=== PATIENT | male | born 1960 | race Hispanic/Latino ===

== ENCOUNTER 2023-04-08 15:11 | Emergency (ER) | payer SELFPAY ==
[2023-04-08] VITALS (22 sets, daily range): BP systolic 110–155; BP diastolic 77–93; PULSE 69–94; RESP 16–28; TEMP 36.2; O2SAT 89–96; BMI 28.7
--- NOTE | 2023-04-08 15:26 | PC.NURSE ---
Patient was working out 2 days ago and his ribs started hurting. He then decided to go for a run yesterday and the pain got a lot worse. He is not able to take deep breathes without 10/10 pain only in his right side. He has never had this before.
--- NOTE | 2023-04-08 15:29 | DI.CT.S_ITS ---
PROCEDURE: CT ANGIO CHEST PE PROTOCOL INDICATIONS: Pleuritic chest pain TECHNIQUE: After the administration of intravenous contrast, 2 mm thick sections acquired from the pulmonary apices to the posterior costophrenic angles. 3-dimensional maximum intensity projection (MIP) coronal and sagittal reformats were then acquired through the thorax. For radiation dose reduction, the following was used: automated exposure control, adjustment of mA and/or kV according to patient size. COMPARISON: None. FINDINGS: Image quality: Excellent. Pulmonary arteries: Pulmonary arteries are normal in size. Intraluminal filling defects are noted within segmental and subsegmental branches of left lower lobe pulmonary artery, right upper and lower lobe pulmonary artery branches best seen on series 4, image 70, series 4 image 75, and series 4 image 56, suggestive of extensive bilateral pulmonary emboli. Lungs and pleura: There is a small right pleural effusion and trace left pleural effusion. Hazy ground-glass opacities are seen scattered in right upper lobe, right middle lobe, left upper lobe and bilateral lower lobes extending to bilateral hilar region. Finding is most notably involving posterior aspect of right lower lobe and posterior lateral aspect of left lung base. 4 mm slightly spiculated nodule is seen in anterior right lung base series 5, image 164. 5 mm solid nodule is noted in anterior aspect of right upper lobe series 5 image 94. 6 mm solid nodule is noted in lateral aspect of left upper lobe series 5, image 85 Central and peripheral airways are patent. Mediastinum: Heart size is enlarged, without pericardial effusion. There is slight left for bowing of the interventricular septum concerning for right heart strain. Mildly enlarged mediastinal and hilar lymph nodes are seen measures up to 1.2 cm in size in subcarinal space and 1 cm in size in right hilar region. Thoracic aorta is normal in caliber and enhancement. Esophagus is normal in caliber, with a small hiatal hernia. Bones and chest wall: No suspicious bony lesions. Ribs and thoracic spine appear intact throughout. Thyroid gland is within normal limits. No axillary or supraclavicular adenopathy. Abdomen: Visualized upper abdominal solid organs appear normal in the early arterial phase of enhancement. IMPRESSION: 1. Fairly extensive pulmonary emboli in bilateral segmental and segmental branches of pulmonary arteries as described above. There are signs of early right heart strain. 2. No thoracic aortic aneurysm or gross dissection. Cardiomegaly, no pericardial effusion. 3. Hazy ground-glass opacities and airspace opacities scattered in bilateral lung gandhi suggestive of bilateral patchy pulmonary infiltrates. Trace left pleural effusion and small right pleural effusion with bibasilar atelectasis/infiltrates. No pneumothorax. 4. Mildly enlarged mediastinal and hilar lymph nodes concerning for reactive inflammatory nodes. 5. Incidentally noted of small solid pulmonary nodules as described above. Follow-up CT chest in 6 months is recommended for evaluation of stability or resolution. Dictated by: John Montana M.D. on 04/08/2023 at 16:36 Approved by: John Montana M.D. on 04/08/2023 at 16:46
[2023-04-08] MEDS: CYCLOBENZAPRINE 10 MG TABLET PO (15:45)
[2023-04-08] MEDS: KETOROLAC 30 MG/ML VIAL 15 MG IV (15:45)
[2023-04-08 15:47] LABS: Add Manual Diff / Slide Review NO; Basophils Absolute Auto 0 /uL (0-100); Basophils Percent Auto 0.2 % (0-2); Eosinophils Absolute Auto 200 /uL (0-450); Eosinophils Percent Auto 1.3 % (2-4); Hemoglobin 13.8 g/dL (13.5-17.5); Lymphocytes Absolute Auto 800 /uL (1100-4500); Lymphocytes Percent Auto 6.5 % (25-40); Mean Corpuscular HGB Conc 33.7 % (30-36); Mean Corpuscular Hemoglobin 30.6 PG (26-34); Monocytes Absolute Auto 800 /uL (0-900); Monocytes Percent Auto 7.1 % (3-14); Neutrophils Absolute Auto 9800 /uL (1500-7000); Neutrophils Percent Auto 84.9 % (50-75); Platelet Count 275 X10^3/uL (150-400); Red Cell Distribution Width 13.5 % (11.6-14.8); White Blood Cell Count 11.6 X10^3/uL (4.5-11.0)
[2023-04-08 15:50] LABS: INR 1.2 (0.9-1.3); Prothrombin Time 13.8 SECONDS (10.1-12.7)
[2023-04-08 15:53] LABS: PTT Partial Thromboplastin Tim 31 SECONDS (26-36)
[2023-04-08 15:59] LABS: Alanine Aminotransferase 35 IU/L (<50); Albumin 4.4 g/dL (3.5-5.0); Albumin Globulin Ratio 1.2 (1.0-2.8); Alkaline Phosphatase 85 U/L (38-126); Aspartate Aminotransferase 27 IU/L (17-59); BUN Creatinine Ratio 20.8 (6-22); Bilirubin Total 0.8 mg/dL (0.2-1.3); Blood Urea Nitrogen 22 mg/dL (9-20); Calcium 10.5 mg/dL (8.4-10.2); Carbon Dioxide 26 mmol/L (22-32); Chloride 103 mmol/L (98-107); Estimated Glomerular Filt Rate > 60 mL/min (>60); Globulin 3.8 g/dL (1.7-4.1); Glucose 130 mg/dL (80-110); HEMOLYSIS < 15 (0-50); Lipase 144 U/L (23-300); Potassium 4.8 mmol/L (3.4-5.1); Sodium 139 mmol/L (137-145); Total Protein 8.2 g/dL (6.3-8.2)
--- NOTE | 2023-04-08 16:13 | ED_ITS ---
HPI - Back Pain/Injury <Modesta Aquino PA-C - Last Filed: 04/08/23 18:41> General Chief Complaint: Back Pain/Injury Stated Complaint: rt back pain, very painful when inhale Time Seen by Provider: 04/08/23 15:30 Source: patient History of Present Illness HPI Narrative: 62-year-old male with no reported past medical history presents to the ED with 2 days of pleuritic right lower rib pain. Patient states that it has been excruciatingly painful to breathe over the last 2 days. 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 Patient also went running yesterday hoping to make his symptoms better. In the ED, patient looks uncomfortable, points to his posterior right lower ribs as the spot that hurts. Patient denies fever, chills, shortness of breath, nausea, vomiting, lightheadedness, dizziness, syncope. Patient states he had a bad cold in January of this year, took a 5 [address] long plane ride to and from [facility]. No prior history of blood clots. Patient is not a smoker. Patient denies drug use. Occasional alcohol use. Related Data Allergies Allergy/AdvReac Type Severity Reaction Status Date / Time No Known Drug Allergies Allergy Verified 04/08/23 15:19 Review of Systems <Modesta Aquino PA-C - Last Filed: 04/08/23 18:41> Review of Systems ROS Unobtainable: All systems reviewed & are unremarkable except as noted in HPI and below Constitutional Constitutional: Denies chills, Denies fatigue, Denies fever(s), Denies frequent falls, Denies lethargy and Denies weakness Eyes Eyes: Denies change in vision, Denies eye discharge, Denies irritation and Denies loss of vision ENT Ears, Nose, Mouth, and Throat: Denies change in voice, Denies dizziness, Denies neck pain, Denies sore throat and Denies throat swelling Cardiovascular Cardiovascular: Denies chest pain, Denies irregular heart rhythm, Denies lightheadedness, Denies palpitations, Denies dyspnea, Denies dyspnea on exertion and Denies orthopnea Respiratory Respiratory: Denies cough, Reports pain on inspiration, Denies dyspnea, Denies dyspnea on exertion and Denies wheezing Gastrointestinal Gastrointestinal: Denies abdominal pain, Denies change in bowel habits, Denies diarrhea, Denies nausea and Denies vomiting Genitourinary Genitourinary: Denies hematuria, Denies flank pain, Denies urinary incontinence and Denies urinary urgency Musculoskeletal Musculoskeletal: Denies back pain, Denies muscle weakness, Denies neck pain, Denies numbness and Denies tingling Integumentary/Breasts Skin/Breast: Denies pruritus, Denies erythema, Denies rash and Denies wounds Neurologic Neurologic: Denies behavioral changes, Denies confusion, Denies dizziness, Denies frequent falls, Denies loss of vision, Denies numbness, Denies tingling and Denies weakness Psychiatric Psychiatric: Denies anxiety, Denies behavioral changes, Denies confusion, Denies depression, Denies homicidal ideation and Denies suicidal ideation Endocrine Endocrine: Denies fatigue, Denies flushing and Denies palpitations Hematologic/Lymphatic Hematologic/Lymphatic: Denies easy bruising Allergic/Immunologic Allergic/Immunologic: Denies urticaria, Denies throat swelling and Denies wheezing Patient History <Modesta Aquino PA-C - Last Filed: 04/08/23 18:41> Social History Smoking Status: Never smoker Smoking Status: Never smoker alcohol intake frequency: 0-2 drinks per day Substance Use Type: does not use Exam <Modesta Aquino PA-C - Last Filed: 04/08/23 18:41> Narrative Exam Narrative: Const General:?cooperative, healthy appearing and comfortable [facility] Head:?normal to inspection Ears:?hearing grossly normal bilaterally Nose:?external nose normal Face and sinus:?normal facial exam and sinuses nontender Mouth:?oral mucosae normal Throat:?posterior oropharynx normal Eyes General:?appearance normal, both eyes and all related structures Neck Neck:?normal visual inspection and no lymphadenopathy noted Resp Effort & Inspection:?normal respiratory effort Auscultation:?clear to auscultation bilaterally Cardio Rate:?regular rate Rhythm:?regular rhythm GI Abdomen is soft, nondistended, nontender to palpation. There is no CVA tenderness. Musculoskeletal No tenderness to palpation of the right lower ribs, no bruising, no deformities. Neuro General:?patient alert, patient awake and patient oriented x3 Initial Vital Signs Initial Vital Signs: Vital Signs Temperature 97.2 F L 04/08/23 15:14 Pulse Rate 94 H 04/08/23 15:14 Respiratory Rate 18 04/08/23 15:14 Blood Pressure 141/93 H 04/08/23 15:14 Pulse Oximetry 95 04/08/23 15:14 Oxygen Delivery Method Room Air 04/08/23 15:14 <Dany Whitmore MD - Last Filed: 04/10/23 03:21> Initial Vital Signs Initial Vital Signs: Vital Signs Temperature 97.2 F L 04/08/23 15:14 Pulse Rate 94 H 04/08/23 15:14 Respiratory Rate 18 04/08/23 15:14 Blood Pressure 141/93 H 04/08/23 15:14 Pulse Oximetry 95 04/08/23 15:14 Oxygen Delivery Method Room Air 04/08/23 15:14 <Puma Kuo MD - Last Filed: 04/09/23 20:18> Initial Vital Signs Initial Vital Signs: Vital Signs Temperature 97.2 F L 04/08/23 15:14 Pulse Rate 94 H 04/08/23 15:14 Respiratory Rate 18 04/08/23 15:14 Blood Pressure 141/93 H 04/08/23 15:14 Pulse Oximetry 95 04/08/23 15:14 Oxygen Delivery Method Room Air 04/08/23 15:14 Course <Modesta Aquino PA-C - Last Filed: 04/08/23 18:41> Orders Ordered: ED Orders 04/09/23 19:49 CBC Auto Diff [Complete Blood Count AUTO DIFF] Stat CMP [Comprehensive Metabolic Panel] Stat 04/09/23 20:58 PTT Partial Thromboplastin Gee Stat Discontinued Medications Albuterol (Albuterol 2.5 Mg/3 Ml Neb (Adult)) 2.5 mg INH NOW ONE Stop: 04/09/23 18:12 Last Admin: 04/09/23 18:15 Dose: 2.5 mg Documented By: AMAN Azithromycin (Azithromycin 250 Mg Tablet) 500 mg PO NOW ONE Stop: 04/08/23 17:59 Last Admin: 04/08/23 18:39 Dose: 500 mg Documented By: JAYANT Cyclobenzaprine HCl (Cyclobenzaprine 10 Mg Tablet) 10 mg PO NOW ONE Stop: 04/08/23 15:29 Last Admin: 04/08/23 15:45 Dose: 10 mg Documented By: BENSON Diazepam (Diazepam 10 Mg/2 Ml Syringe) 5 mg IV NOW ONE Stop: 04/09/23 01:36 Last Admin: 04/09/23 01:39 Dose: 5 mg Documented By: XIN Diazepam (Diazepam 10 Mg/2 Ml Syringe) 5 mg IV NOW ONE Stop: 04/09/23 18:06 Last Admin: 04/09/23 18:09 Dose: 5 mg Documented By: KJ Diazepam (Diazepam 10 Mg/2 Ml Syringe) 5 mg IV NOW ONE Stop: 04/09/23 21:41 Last Admin: 04/09/23 21:59 Dose: 5 mg Documented By: ARLEEN Heparin Sodium (Porcine) (Heparin 5,000 Unit/Ml Vial) 7,300 unit 80 unit/kg (7300 unit) IV NOW ONE Stop: 04/08/23 17:30 Last Admin: 04/08/23 18:40 Dose: 7,300 unit Documented By: JAYANT Heparin Sodium (Porcine) (Heparin 5,000 Unit/Ml Vial) 2,000 unit IV NOW ONE Stop: 04/09/23 01:29 Last Admin: 04/09/23 01:32 Dose: 2,000 unit Documented By: XIN Heparin Sodium (Porcine) (Heparin 5,000 Unit/Ml Vial) 2,000 unit IV NOW ONE Stop: 04/09/23 14:56 Last Admin: 04/09/23 14:58 Dose: 2,000 unit Documented By: KJ Heparin Sodium (Porcine) (Heparin 5,000 Unit/Ml Vial) 2,000 unit IV NOW ONE Stop: 04/09/23 21:42 Last Admin: 04/09/23 21:50 Dose: 2,000 unit Documented By: ARLEEN Hydromorphone HCl (Hydromorphone 1 Mg Inj) 1 mg IV Q4HR PRN PRN Reason: Pain, Moderate (4-6) Last Admin: 04/09/23 16:37 Dose: 1 mg Documented By: Admin: 04/09/23 12:37 Dose: 1 mg Documented By: Admin: 04/09/23 08:04 Dose: 1 mg Documented By: Admin: 04/09/23 00:55 Dose: 1 mg Documented By: XIN Hydromorphone HCl (Hydromorphone 1 Mg Inj) 1 mg IV Q2H PRN PRN Reason: Pain, Moderate (4-6) Last Admin: 04/09/23 20:46 Dose: 1 mg Documented By: Admin: 04/09/23 18:37 Dose: 1 mg Documented By: KJ Hydromorphone HCl (Hydromorphone 1 Mg Inj) 1 mg IV NOW ONE Stop: 04/09/23 21:46 Last Admin: 04/09/23 21:56 Dose: 1 mg Documented By: ARLEEN Heparin Sodium/Dextrose (Heparin Drip) 25,000 unit in 500 mls @ 32.658 mls/hr IV CONT MICHAEL; Protocol Last Titration: 04/09/23 22:23 Dose: 0 units/kg/hr, 0 mls/hr Documented By: ARLEEN Co-signed By: LATOYA Titration: 04/09/23 21:51 Dose: 22.38 units/kg/hr, 40.6 mls/hr Documented By: ARLEEN Co-signed By: EUGENIO Titration: 04/09/23 14:59 Dose: 21.27 units/kg/hr, 38.6 mls/hr Documented By: KJ Co-signed By: LATOYA Admin: 04/09/23 09:51 Dose: 20.17 units/kg/hr, 36.6 mls/hr Documented By: RB Co-signed By: JENNIFER Titration: 04/09/23 09:50 Dose: 20.17 units/kg/hr, 36.596 mls/hr Documented By: KJ Co-signed By: JENNIFER Titration: 04/09/23 08:44 Dose: 20.17 units/kg/hr, 36.6 mls/hr Documented By: RB Co-signed By: KM Titration: 04/09/23 01:32 Dose: 19.07 units/kg/hr, 34.6 mls/hr Documented By: EUGENIO Co-signed By: BENSON Admin: 04/08/23 18:46 Dose: 18 units/kg/hr, 32.658 mls/hr Documented By: JAYANT Co-signed By: BENSON Ceftriaxone Sodium 1,000 mg/ (Sodium Chloride) 100 mls @ 200 mls/hr IV NOW ONE Stop: 04/08/23 17:59 Last Infusion: 04/08/23 19:40 Dose: 0 mls/hr Documented By: Admin: 04/08/23 18:39 Dose: 200 mls/hr Documented By: JAYANT Lactated Ringer's (Lactated Ringers) 1,000 mls @ 150 mls/hr IV CONT MICHAEL Last Infusion: 04/09/23 22:25 Dose: 0 mls/hr Documented By: Admin: 04/09/23 20:32 Dose: 150 mls/hr Documented By: Infusion: 04/09/23 20:04 Dose: 150 mls/hr Documented By: Admin: 04/09/23 13:23 Dose: 150 mls/hr Documented By: KJ Ceftriaxone Sodium 2,000 mg/ (Sodium Chloride) 100 mls @ 200 mls/hr IV DAILY MICHAEL Doxycycline Hyclate 100 mg/ (Sodium Chloride) 100 mls @ 100 mls/hr IV BID MICHAEL Last Infusion: 04/09/23 22:07 Dose: 0 mls/hr Documented By: Admin: 04/09/23 20:31 Dose: 100 mls/hr Documented By: ARLEEN Ceftriaxone Sodium 2,000 mg/ (Sodium Chloride) 100 mls @ 200 mls/hr IV Q24H MICHAEL Ketorolac Tromethamine (Ketorolac 30 Mg/Ml Vial) 15 mg IV NOW ONE Stop: 04/08/23 15:29 Last Admin: 04/08/23 15:45 Dose: 15 mg Documented By: BENSON Metoprolol Tartrate (Metoprolol Ir 25 Mg Tablet) 25 mg PO NOW ONE Stop: 04/08/23 17:54 Last Admin: 04/08/23 18:39 Dose: 25 mg Documented By: JAYANT Morphine Sulfate (Morphine 2 Mg/Ml Inj) 4 mg IV Q4HR PRN PRN Reason: Pain, Moderate (4-6) Last Admin: 04/09/23 14:29 Dose: 4 mg Documented By: Admin: 04/09/23 09:53 Dose: 4 mg Documented By: Admin: 04/08/23 21:07 Dose: 4 mg Documented By: BENSON Morphine Sulfate (Morphine 4 Mg/Ml Inj) 4 mg IV Q4H PRN PRN Reason: Pain, Moderate (4-6) Oxycodone/Acetaminophen (Oxycodone/Acetaminophen 5/325 Tablet) 2 tab PO NOW ONE Stop: 04/09/23 03:03 Last Admin: 04/09/23 03:05 Dose: 2 tab Documented By: XIN Oxycodone/Acetaminophen (Oxycodone/Acetaminophen 5/325 Tablet) 1 tab PO NOW ONE Stop: 04/09/23 10:33 Last Admin: 04/09/23 10:37 Dose: 1 tab Documented By: KJ Oxycodone/Acetaminophen (Oxycodone/Acetaminophen 5/325 Tablet) 1 tab PO NOW ONE Stop: 04/09/23 17:34 Last Admin: 04/09/23 17:38 Dose: 1 tab Documented By: KJ Vital Signs Vital signs: Vital Signs - 8 hr 04/09/23 19:25 04/09/23 19:30 04/09/23 19:35 Pulse Rate 96 H 96 H 93 H Respiratory Rate 46 H 43 H 37 H Blood Pressure Pulse Oximetry 94 96 95 Oxygen Delivery Method Nasal Cannula Nasal Cannula Nasal Cannula Oxygen Flow Rate 3 3 3 04/09/23 19:40 04/09/23 19:41 04/09/23 19:41 Pulse Rate 95 H 95 H Respiratory Rate 48 H 40 H Blood Pressure 162/110 H Pulse Oximetry 95 94 Oxygen Delivery Method Nasal Cannula Nasal Cannula Oxygen Flow Rate 3 3 04/09/23 19:45 04/09/23 19:50 04/09/23 19:55 Pulse Rate 93 H 91 H 89 Respiratory Rate 29 H 28 H 30 H Blood Pressure Pulse Oximetry 95 94 95 Oxygen Delivery Method Nasal Cannula Nasal Cannula Nasal Cannula Oxygen Flow Rate 3 3 3 04/09/23 20:00 04/09/23 20:05 04/09/23 20:10 Pulse Rate 91 H 88 85 Respiratory Rate 32 H 30 H 27 H Blood Pressure Pulse Oximetry 93 91 91 Oxygen Delivery Method Nasal Cannula Nasal Cannula Nasal Cannula Oxygen Flow Rate 3 3 3 04/09/23 20:14 04/09/23 20:14 04/09/23 20:30 Pulse Rate 89 91 H Respiratory Rate 31 H 35 H Blood Pressure 170/113 H Pulse Oximetry 84 L Oxygen Delivery Method Nasal Cannula Oxygen Flow Rate 3 04/09/23 20:31 04/09/23 20:31 04/09/23 20:35 Pulse Rate 89 87 Respiratory Rate 26 H 27 H Blood Pressure 153/100 H Pulse Oximetry 92 93 Oxygen Delivery Method Nasal Cannula Nasal Cannula Oxygen Flow Rate 3 4 04/09/23 20:40 04/09/23 20:45 04/09/23 20:50 Pulse Rate 92 H 90 88 Respiratory Rate 37 H 30 H 26 H Blood Pressure Pulse Oximetry 98 98 99 Oxygen Delivery Method Nasal Cannula Nasal Cannula Nasal Cannula Oxygen Flow Rate 4 4 3 04/09/23 20:55 04/09/23 21:00 04/09/23 21:00 Pulse Rate 88 90 Respiratory Rate 24 28 H Blood Pressure 165/102 H Pulse Oximetry 98 97 Oxygen Delivery Method Nasal Cannula Nasal Cannula Oxygen Flow Rate 3 3 04/09/23 21:05 04/09/23 21:10 04/09/23 21:15 Pulse Rate 86 85 86 Respiratory Rate 24 21 27 H Blood Pressure Pulse Oximetry 97 97 97 Oxygen Delivery Method Nasal Cannula Nasal Cannula Nasal Cannula Oxygen Flow Rate 3 3 3 04/09/23 21:20 04/09/23 21:25 04/09/23 21:30 Pulse Rate 88 83 Respiratory Rate 29 H 21 Blood Pressure 184/114 H Pulse Oximetry 96 97 Oxygen Delivery Method Nasal Cannula Nasal Cannula Oxygen Flow Rate 3 3 04/09/23 21:30 04/09/23 21:35 04/09/23 21:42 Pulse Rate 90 95 H 110 H Respiratory Rate 51 H 47 H 28 H Blood Pressure Pulse Oximetry 97 98 93 Oxygen Delivery Method Nasal Cannula Nasal Cannula Nasal Cannula Oxygen Flow Rate 3 3 3 04/09/23 21:42 04/09/23 21:50 04/09/23 21:57 Pulse Rate 104 H Respiratory Rate 19 Blood Pressure 165/119 H 136/83 Pulse Oximetry 87 L Oxygen Delivery Method Nasal Cannula Oxygen Flow Rate 3 04/09/23 22:00 04/09/23 22:01 04/09/23 22:01 Pulse Rate 95 H 96 H Respiratory Rate 26 H 21 Blood Pressure 93/47 L Pulse Oximetry 96 95 Oxygen Delivery Method Nasal Cannula Nasal Cannula Oxygen Flow Rate 5 5 04/09/23 22:04 04/09/23 22:04 04/09/23 22:05 Pulse Rate 94 H 93 H Respiratory Rate 25 H 19 Blood Pressure 144/95 H Pulse Oximetry 93 90 L Oxygen Delivery Method Nasal Cannula Nasal Cannula Oxygen Flow Rate 5 5 04/09/23 22:10 Pulse Rate 92 H Respiratory Rate 17 Blood Pressure Pulse Oximetry 99 Oxygen Delivery Method Nasal Cannula Oxygen Flow Rate 5 <Dany Whitmore MD - Last Filed: 04/10/23 03:21> Orders Ordered: ED Orders 04/09/23 19:49 CBC Auto Diff [Complete Blood Count AUTO DIFF] Stat CMP [Comprehensive Metabolic Panel] Stat 04/09/23 20:58 PTT Partial Thromboplastin Gee Stat Discontinued Medications Albuterol (Albuterol 2.5 Mg/3 Ml Neb (Adult)) 2.5 mg INH NOW ONE Stop: 04/09/23 18:12 Last Admin: 04/09/23 18:15 Dose: 2.5 mg Documented By: AMAN Azithromycin (Azithromycin 250 Mg Tablet) 500 mg PO NOW ONE Stop: 04/08/23 17:59 Last Admin: 04/08/23 18:39 Dose: 500 mg Documented By: JAYANT Cyclobenzaprine HCl (Cyclobenzaprine 10 Mg Tablet) 10 mg PO NOW ONE Stop: 04/08/23 15:29 Last Admin: 04/08/23 15:45 Dose: 10 mg Documented By: BENSON Diazepam (Diazepam 10 Mg/2 Ml Syringe) 5 mg IV NOW ONE Stop: 04/09/23 01:36 Last Admin: 04/09/23 01:39 Dose: 5 mg Documented By: XIN Diazepam (Diazepam 10 Mg/2 Ml Syringe) 5 mg IV NOW ONE Stop: 04/09/23 18:06 Last Admin: 04/09/23 18:09 Dose: 5 mg Documented By: KJ Diazepam (Diazepam 10 Mg/2 Ml Syringe) 5 mg IV NOW ONE Stop: 04/09/23 21:41 Last Admin: 04/09/23 21:59 Dose: 5 mg Documented By: ARLEEN Heparin Sodium (Porcine) (Heparin 5,000 Unit/Ml Vial) 7,300 unit 80 unit/kg (7300 unit) IV NOW ONE Stop: 04/08/23 17:30 Last Admin: 04/08/23 18:40 Dose: 7,300 unit Documented By: JAYANT Heparin Sodium (Porcine) (Heparin 5,000 Unit/Ml Vial) 2,000 unit IV NOW ONE Stop: 04/09/23 01:29 Last Admin: 04/09/23 01:32 Dose: 2,000 unit Documented By: XIN Heparin Sodium (Porcine) (Heparin 5,000 Unit/Ml Vial) 2,000 unit IV NOW ONE Stop: 04/09/23 14:56 Last Admin: 04/09/23 14:58 Dose: 2,000 unit Documented By: KJ Heparin Sodium (Porcine) (Heparin 5,000 Unit/Ml Vial) 2,000 unit IV NOW ONE Stop: 04/09/23 21:42 Last Admin: 04/09/23 21:50 Dose: 2,000 unit Documented By: ARLEEN Hydromorphone HCl (Hydromorphone 1 Mg Inj) 1 mg IV Q4HR PRN PRN Reason: Pain, Moderate (4-6) Last Admin: 04/09/23 16:37 Dose: 1 mg Documented By: Admin: 04/09/23 12:37 Dose: 1 mg Documented By: Admin: 04/09/23 08:04 Dose: 1 mg Documented By: Admin: 04/09/23 00:55 Dose: 1 mg Documented By: XIN Hydromorphone HCl (Hydromorphone 1 Mg Inj) 1 mg IV Q2H PRN PRN Reason: Pain, Moderate (4-6) Last Admin: 04/09/23 20:46 Dose: 1 mg Documented By: Admin: 04/09/23 18:37 Dose: 1 mg Documented By: KJ Hydromorphone HCl (Hydromorphone 1 Mg Inj) 1 mg IV NOW ONE Stop: 04/09/23 21:46 Last Admin: 04/09/23 21:56 Dose: 1 mg Documented By: ARLEEN Heparin Sodium/Dextrose (Heparin Drip) 25,000 unit in 500 mls @ 32.658 mls/hr IV CONT MICHAEL; Protocol Last Titration: 04/09/23 22:23 Dose: 0 units/kg/hr, 0 mls/hr Documented By: ARLEEN Co-signed By: LATOYA Titration: 04/09/23 21:51 Dose: 22.38 units/kg/hr, 40.6 mls/hr Documented By: ARLEEN Co-signed By: HNG Titration: 04/09/23 14:59 Dose: 21.27 units/kg/hr, 38.6 mls/hr Documented By: RB Co-signed By: LATOYA Admin: 04/09/23 09:51 Dose: 20.17 units/kg/hr, 36.6 mls/hr Documented By: KJ Co-signed By: AMU Titration: 04/09/23 09:50 Dose: 20.17 units/kg/hr, 36.596 mls/hr Documented By: RB Co-signed By: AMU Titration: 04/09/23 08:44 Dose: 20.17 units/kg/hr, 36.6 mls/hr Documented By: KJ Co-signed By: MARVA Titration: 04/09/23 01:32 Dose: 19.07 units/kg/hr, 34.6 mls/hr Documented By: EUGENIO Co-signed By: BENSON Admin: 04/08/23 18:46 Dose: 18 units/kg/hr, 32.658 mls/hr Documented By: JAYANT Co-signed By: BENSON Ceftriaxone Sodium 1,000 mg/ (Sodium Chloride) 100 mls @ 200 mls/hr IV NOW ONE Stop: 04/08/23 17:59 Last Infusion: 04/08/23 19:40 Dose: 0 mls/hr Documented By: Admin: 04/08/23 18:39 Dose: 200 mls/hr Documented By: JAYANT Lactated Ringer's (Lactated Ringers) 1,000 mls @ 150 mls/hr IV CONT MICHAEL Last Infusion: 04/09/23 22:25 Dose: 0 mls/hr Documented By: Admin: 04/09/23 20:32 Dose: 150 mls/hr Documented By: Infusion: 04/09/23 20:04 Dose: 150 mls/hr Documented By: Admin: 04/09/23 13:23 Dose: 150 mls/hr Documented By: KJ Ceftriaxone Sodium 2,000 mg/ (Sodium Chloride) 100 mls @ 200 mls/hr IV DAILY MICHAEL Doxycycline Hyclate 100 mg/ (Sodium Chloride) 100 mls @ 100 mls/hr IV BID MICHAEL Last Infusion: 04/09/23 22:07 Dose: 0 mls/hr Documented By: Admin: 04/09/23 20:31 Dose: 100 mls/hr Documented By: ARLEEN Ceftriaxone Sodium 2,000 mg/ (Sodium Chloride) 100 mls @ 200 mls/hr IV Q24H [facility] Ketorolac Tromethamine (Ketorolac 30 Mg/Ml Vial) 15 mg IV NOW ONE Stop: 04/08/23 15:29 Last Admin: 04/08/23 15:45 Dose: 15 mg Documented By: BENSON Metoprolol Tartrate (Metoprolol Ir 25 Mg Tablet) 25 mg PO NOW ONE Stop: 04/08/23 17:54 Last Admin: 04/08/23 18:39 Dose: 25 mg Documented By: JAYANT Morphine Sulfate (Morphine 2 Mg/Ml Inj) 4 mg IV Q4HR PRN PRN Reason: Pain, Moderate (4-6) Last Admin: 04/09/23 14:29 Dose: 4 mg Documented By: Admin: 04/09/23 09:53 Dose: 4 mg Documented By: Admin: 04/08/23 21:07 Dose: 4 mg Documented By: ZALAN Morphine Sulfate (Morphine 4 Mg/Ml Inj) 4 mg IV Q4H PRN PRN Reason: Pain, Moderate (4-6) Oxycodone/Acetaminophen (Oxycodone/Acetaminophen 5/325 Tablet) 2 tab PO NOW ONE Stop: 04/09/23 03:03 Last Admin: 04/09/23 03:05 Dose: 2 tab Documented By: XIN Oxycodone/Acetaminophen (Oxycodone/Acetaminophen 5/325 Tablet) 1 tab PO NOW ONE Stop: 04/09/23 10:33 Last Admin: 04/09/23 10:37 Dose: 1 tab Documented By: KJ Oxycodone/Acetaminophen (Oxycodone/Acetaminophen 5/325 Tablet) 1 tab PO NOW ONE Stop: 04/09/23 17:34 Last Admin: 04/09/23 17:38 Dose: 1 tab Documented By: KJ Vital Signs Vital signs: Vital Signs - 8 hr 04/09/23 19:25 04/09/23 19:30 04/09/23 19:35 Pulse Rate 96 H 96 H 93 H Respiratory Rate 46 H 43 H 37 H Blood Pressure Pulse Oximetry 94 96 95 Oxygen Delivery Method Nasal Cannula Nasal Cannula Nasal Cannula Oxygen Flow Rate 3 3 3 04/09/23 19:40 04/09/23 19:41 04/09/23 19:41 Pulse Rate 95 H 95 H Respiratory Rate 48 H 40 H Blood Pressure 162/110 H Pulse Oximetry 95 94 Oxygen Delivery Method Nasal Cannula Nasal Cannula Oxygen Flow Rate 3 3 04/09/23 19:45 04/09/23 19:50 04/09/23 19:55 Pulse Rate 93 H 91 H 89 Respiratory Rate 29 H 28 H 30 H Blood Pressure Pulse Oximetry 95 94 95 Oxygen Delivery Method Nasal Cannula Nasal Cannula Nasal Cannula Oxygen Flow Rate 3 3 3 04/09/23 20:00 04/09/23 20:05 04/09/23 20:10 Pulse Rate 91 H 88 85 Respiratory Rate 32 H 30 H 27 H Blood Pressure Pulse Oximetry 93 91 91 Oxygen Delivery Method Nasal Cannula Nasal Cannula Nasal Cannula Oxygen Flow Rate 3 3 3 04/09/23 20:14 04/09/23 20:14 04/09/23 20:30 Pulse Rate 89 91 H Respiratory Rate 31 H 35 H Blood Pressure 170/113 H Pulse Oximetry 84 L Oxygen Delivery Method Nasal Cannula Oxygen Flow Rate 3 04/09/23 20:31 04/09/23 20:31 04/09/23 20:35 Pulse Rate 89 87 Respiratory Rate 26 H 27 H Blood Pressure 153/100 H Pulse Oximetry 92 93 Oxygen Delivery Method Nasal Cannula Nasal Cannula Oxygen Flow Rate 3 4 04/09/23 20:40 04/09/23 20:45 04/09/23 20:50 Pulse Rate 92 H 90 88 Respiratory Rate 37 H 30 H 26 H Blood Pressure Pulse Oximetry 98 98 99 Oxygen Delivery Method Nasal Cannula Nasal Cannula Nasal Cannula Oxygen Flow Rate 4 4 3 04/09/23 20:55 04/09/23 21:00 04/09/23 21:00 Pulse Rate 88 90 Respiratory Rate 24 28 H Blood Pressure 165/102 H Pulse Oximetry 98 97 Oxygen Delivery Method Nasal Cannula Nasal Cannula Oxygen Flow Rate 3 3 04/09/23 21:05 04/09/23 21:10 04/09/23 21:15 Pulse Rate 86 85 86 Respiratory Rate 24 21 27 H Blood Pressure Pulse Oximetry 97 97 97 Oxygen Delivery Method Nasal Cannula Nasal Cannula Nasal Cannula Oxygen Flow Rate 3 3 3 04/09/23 21:20 04/09/23 21:25 04/09/23 21:30 Pulse Rate 88 83 Respiratory Rate 29 H 21 Blood Pressure 184/114 H Pulse Oximetry 96 97 Oxygen Delivery Method Nasal Cannula Nasal Cannula Oxygen Flow Rate 3 3 04/09/23 21:30 04/09/23 21:35 04/09/23 21:42 Pulse Rate 90 95 H 110 H Respiratory Rate 51 H 47 H 28 H Blood Pressure Pulse Oximetry 97 98 93 Oxygen Delivery Method Nasal Cannula Nasal Cannula Nasal Cannula Oxygen Flow Rate 3 3 3 04/09/23 21:42 04/09/23 21:50 04/09/23 21:57 Pulse Rate 104 H Respiratory Rate 19 Blood Pressure 165/119 H 136/83 Pulse Oximetry 87 L Oxygen Delivery Method Nasal Cannula Oxygen Flow Rate 3 04/09/23 22:00 04/09/23 22:01 04/09/23 22:01 Pulse Rate 95 H 96 H Respiratory Rate 26 H 21 Blood Pressure 93/47 L Pulse Oximetry 96 95 Oxygen Delivery Method Nasal Cannula Nasal Cannula Oxygen Flow Rate 5 5 04/09/23 22:04 04/09/23 22:04 04/09/23 22:05 Pulse Rate 94 H 93 H Respiratory Rate 25 H 19 Blood Pressure 144/95 H Pulse Oximetry 93 90 L Oxygen Delivery Method Nasal Cannula Nasal Cannula Oxygen Flow Rate 5 5 04/09/23 22:10 Pulse Rate 92 H Respiratory Rate 17 Blood Pressure Pulse Oximetry 99 Oxygen Delivery Method Nasal Cannula Oxygen Flow Rate 5 <Puma Kuo MD - Last Filed: 04/09/23 20:18> Course Course Narrative: Care was assumed from Dr. Whitmore at change of shift. This previously healthy 58-year-old gentleman presented yesterday with right pleuritic chest pain. He would not felt well the 2 days prior, he had it treated his daily routine of running 5 miles. In evaluation of the pulmonary chest pain he was found to have bilateral PEs there was no saddle embolism. He is on heparin. He is requiring oxygen. His O2 sats on oxygen are 99%, desatted to the 80s without oxygen. His pleuritic pain is severe, he is requiring doses of morphine, Dilaudid, and Percocet every 1-2 hours. The intent prior to my arrival was transfer. He was on waiting list at to local hospitals. [facility] was contacted, to assist in placement. I did personally talk to Dr. Taylor, hospitalist ebony and [place]. Noted the patient was not a candidate for invasive procedure, he declined to receive the patient. Furthermore the case was discussed with Cardiology, Dr. Harmon, as [facility]. He concurs with current treatment in the ER, again see no reason to transfer the patient. He did recomm end echocardiogram, this was achieved showing no RV strain. The patient previously been presented to the hospitalist, there seemed to be concerned about patient needing intervention. The patient was again presented, Dr. Garcia suggested the patient could be treated at home on oral anticoagulants. The patient is requiring oxygen. He is very uncomfortable, requiring narcotic pain meds every 1-2 hours. His vitals are stable, he is diaphoretic. I assumed care from Dr. Haines at change of shift this morning. Care will continue in the ER at this time. Care is transferred back to Dr. Whitmore, again at change of shift.-Sasha GILLILAND 18:05 04/09/23 I discussed the case with Dr. Hernandez at [facility] in [place]. The patient has been accepted in transfer. He is diaphoretic, he requires oxygen. He is requiring frequent narcotic pain meds for pleuritic chest pain. He is normotensive with heart rates in the 90s. He is tachypneic respiratory rate 26-28. O2 sats are 95-97% on 2 L nasal cannula at this time. In addition to heparin, he has been started on antibiotics due to nonspecific findings on the chest CTA. The current treatment will be continued, we are awaiting bed confirmation and transfer team. Orders Ordered: ED Orders 04/09/23 19:49 CBC Auto Diff [Complete Blood Count AUTO DIFF] Stat CMP [Comprehensive Metabolic Panel] Stat 04/09/23 20:58 PTT Partial Thromboplastin Gee Stat Discontinued Medications Albuterol (Albuterol 2.5 Mg/3 Ml Neb (Adult)) 2.5 mg INH NOW ONE Stop: 04/09/23 18:12 Last Admin: 04/09/23 18:15 Dose: 2.5 mg Documented By: AMAN Azithromycin (Azithromycin 250 Mg Tablet) 500 mg PO NOW ONE Stop: 04/08/23 17:59 Last Admin: 04/08/23 18:39 Dose: 500 mg Documented By: JAYANT Cyclobenzaprine HCl (Cyclobenzaprine 10 Mg Tablet) 10 mg PO NOW ONE Stop: 04/08/23 15:29 Last Admin: 04/08/23 15:45 Dose: 10 mg Documented By: ZGG Diazepam (Diazepam 10 Mg/2 Ml Syringe) 5 mg IV NOW ONE Stop: 04/09/23 01:36 Last Admin: 04/09/23 01:39 Dose: 5 mg Documented By: XIN Diazepam (Diazepam 10 Mg/2 Ml Syringe) 5 mg IV NOW ONE Stop: 04/09/23 18:06 Last Admin: 04/09/23 18:09 Dose: 5 mg Documented By: RB Diazepam (Diazepam 10 Mg/2 Ml Syringe) 5 mg IV NOW ONE Stop: 04/09/23 21:41 Last Admin: 04/09/23 21:59 Dose: 5 mg Documented By: ARLEEN Heparin Sodium (Porcine) (Heparin 5,000 Unit/Ml Vial) 7,300 unit 80 unit/kg (7300 unit) IV NOW ONE Stop: 04/08/23 17:30 Last Admin: 04/08/23 18:40 Dose: 7,300 unit Documented By: JAYANT Heparin Sodium (Porcine) (Heparin 5,000 Unit/Ml Vial) 2,000 unit IV NOW ONE Stop: 04/09/23 01:29 Last Admin: 04/09/23 01:32 Dose: 2,000 unit Documented By: XIN Heparin Sodium (Porcine) (Heparin 5,000 Unit/Ml Vial) 2,000 unit IV NOW ONE Stop: 04/09/23 14:56 Last Admin: 04/09/23 14:58 Dose: 2,000 unit Documented By: KJ Heparin Sodium (Porcine) (Heparin 5,000 Unit/Ml Vial) 2,000 unit IV NOW ONE Stop: 04/09/23 21:42 Last Admin: 04/09/23 21:50 Dose: 2,000 unit Documented By: ARLEEN Hydromorphone HCl (Hydromorphone 1 Mg Inj) 1 mg IV Q4HR PRN PRN Reason: Pain, Moderate (4-6) Last Admin: 04/09/23 16:37 Dose: 1 mg Documented By: Admin: 04/09/23 12:37 Dose: 1 mg Documented By: Admin: 04/09/23 08:04 Dose: 1 mg Documented By: Admin: 04/09/23 00:55 Dose: 1 mg Documented By: XIN Hydromorphone HCl (Hydromorphone 1 Mg Inj) 1 mg IV Q2H PRN PRN Reason: Pain, Moderate (4-6) Last Admin: 04/09/23 20:46 Dose: 1 mg Documented By: Admin: 04/09/23 18:37 Dose: 1 mg Documented By: KJ Hydromorphone HCl (Hydromorphone 1 Mg Inj) 1 mg IV NOW ONE Stop: 04/09/23 21:46 Last Admin: 04/09/23 21:56 Dose: 1 mg Documented By: ARLEEN Heparin Sodium/Dextrose (Heparin Drip) 25,000 unit in 500 mls @ 32.658 mls/hr IV CONT MICHAEL; Protocol Last Titration: 04/09/23 22:23 Dose: 0 units/kg/hr, 0 mls/hr Documented By: ARLEEN Co-signed By: LATOYA Titration: 04/09/23 21:51 Dose: 22.38 units/kg/hr, 40.6 mls/hr Documented By: ARLEEN Co-signed By: EUGENIO Titration: 04/09/23 14:59 Dose: 21.27 units/kg/hr, 38.6 mls/hr Documented By: RB Co-signed By: LATOYA Admin: 04/09/23 09:51 Dose: 20.17 units/kg/hr, 36.6 mls/hr Documented By: RB Co-signed By: JENNIFER Titration: 04/09/23 09:50 Dose: 20.17 units/kg/hr, 36.596 mls/hr Documented By: RB Co-signed By: JENNIFER Titration: 04/09/23 08:44 Dose: 20.17 units/kg/hr, 36.6 mls/hr Documented By: RB Co-signed By: MARVA Titration: 04/09/23 01:32 Dose: 19.07 units/kg/hr, 34.6 mls/hr Documented By: EUGENIO Co-signed By: BENSON Admin: 04/08/23 18:46 Dose: 18 units/kg/hr, 32.658 mls/hr Documented By: JAYANT Co-signed By: BENSON Ceftriaxone Sodium 1,000 mg/ (Sodium Chloride) 100 mls @ 200 mls/hr IV NOW ONE Stop: 04/08/23 17:59 Last Infusion: 04/08/23 19:40 Dose: 0 mls/hr Documented By: Admin: 04/08/23 18:39 Dose: 200 mls/hr Documented By: JAYANT Lactated Ringer's (Lactated Ringers) 1,000 mls @ 150 mls/hr IV CONT MICHAEL Last Infusion: 04/09/23 22:25 Dose: 0 mls/hr Documented By: Admin: 04/09/23 20:32 Dose: 150 mls/hr Documented By: Infusion: 04/09/23 20:04 Dose: 150 mls/hr Documented By: Admin: 04/09/23 13:23 Dose: 150 mls/hr Documented By: KJ Ceftriaxone Sodium 2,000 mg/ (Sodium Chloride) 100 mls @ 200 mls/hr IV DAILY [facility] Doxycycline Hyclate 100 mg/ (Sodium Chloride) 100 mls @ 100 mls/hr IV BID MICHAEL Last Infusion: 04/09/23 22:07 Dose: 0 mls/hr Documented By: Admin: 04/09/23 20:31 Dose: 100 mls/hr Documented By: ARLEEN Ceftriaxone Sodium 2,000 mg/ (Sodium Chloride) 100 mls @ 200 mls/hr IV Q24H [facility] Ketorolac Tromethamine (Ketorolac 30 Mg/Ml Vial) 15 mg IV NOW ONE Stop: 04/08/23 15:29 Last Admin: 04/08/23 15:45 Dose: 15 mg Documented By: BENSON Metoprolol Tartrate (Metoprolol Ir 25 Mg Tablet) 25 mg PO NOW ONE Stop: 04/08/23 17:54 Last Admin: 04/08/23 18:39 Dose: 25 mg Documented By: JAYANT Morphine Sulfate (Morphine 2 Mg/Ml Inj) 4 mg IV Q4HR PRN PRN Reason: Pain, Moderate (4-6) Last Admin: 04/09/23 14:29 Dose: 4 mg Documented By: Admin: 04/09/23 09:53 Dose: 4 mg Documented By: Admin: 04/08/23 21:07 Dose: 4 mg Documented By: BENSON Morphine Sulfate (Morphine 4 Mg/Ml Inj) 4 mg IV Q4H PRN PRN Reason: Pain, Moderate (4-6) Oxycodone/Acetaminophen (Oxycodone/Acetaminophen 5/325 Tablet) 2 tab PO NOW ONE Stop: 04/09/23 03:03 Last Admin: 04/09/23 03:05 Dose: 2 tab Documented By: XIN Oxycodone/Acetaminophen (Oxycodone/Acetaminophen 5/325 Tablet) 1 tab PO NOW ONE Stop: 04/09/23 10:33 Last Admin: 04/09/23 10:37 Dose: 1 tab Documented By: KJ Oxycodone/Acetaminophen (Oxycodone/Acetaminophen 5/325 Tablet) 1 tab PO NOW ONE Stop: 04/09/23 17:34 Last Admin: 04/09/23 17:38 Dose: 1 tab Documented By: KJ Vital Signs Vital signs: Vital Signs - 8 hr 04/09/23 19:25 04/09/23 19:30 04/09/23 19:35 Pulse Rate 96 H 96 H 93 H Respiratory Rate 46 H 43 H 37 H Blood Pressure Pulse Oximetry 94 96 95 Oxygen Delivery Method Nasal Cannula Nasal Cannula Nasal Cannula Oxygen Flow Rate 3 3 3 04/09/23 19:40 04/09/23 19:41 04/09/23 19:41 Pulse Rate 95 H 95 H Respiratory Rate 48 H 40 H Blood Pressure 162/110 H Pulse Oximetry 95 94 Oxygen Delivery Method Nasal Cannula Nasal Cannula Oxygen Flow Rate 3 3 04/09/23 19:45 04/09/23 19:50 04/09/23 19:55 Pulse Rate 93 H 91 H 89 Respiratory Rate 29 H 28 H 30 H Blood Pressure Pulse Oximetry 95 94 95 Oxygen Delivery Method Nasal Cannula Nasal Cannula Nasal Cannula Oxygen Flow Rate 3 3 3 04/09/23 20:00 04/09/23 20:05 04/09/23 20:10 Pulse Rate 91 H 88 85 Respiratory Rate 32 H 30 H 27 H Blood Pressure Pulse Oximetry 93 91 91 Oxygen Delivery Method Nasal Cannula Nasal Cannula Nasal Cannula Oxygen Flow Rate 3 3 3 04/09/23 20:14 04/09/23 20:14 04/09/23 20:30 Pulse Rate 89 91 H Respiratory Rate 31 H 35 H Blood Pressure 170/113 H Pulse Oximetry 84 L Oxygen Delivery Method Nasal Cannula Oxygen Flow Rate 3 04/09/23 20:31 04/09/23 20:31 04/09/23 20:35 Pulse Rate 89 87 Respiratory Rate 26 H 27 H Blood Pressure 153/100 H Pulse Oximetry 92 93 Oxygen Delivery Method Nasal Cannula Nasal Cannula Oxygen Flow Rate 3 4 04/09/23 20:40 04/09/23 20:45 04/09/23 20:50 Pulse Rate 92 H 90 88 Respiratory Rate 37 H 30 H 26 H Blood Pressure Pulse Oximetry 98 98 99 Oxygen Delivery Method Nasal Cannula Nasal Cannula Nasal Cannula Oxygen Flow Rate 4 4 3 04/09/23 20:55 04/09/23 21:00 04/09/23 21:00 Pulse Rate 88 90 Respiratory Rate 24 28 H Blood Pressure 165/102 H Pulse Oximetry 98 97 Oxygen Delivery Method Nasal Cannula Nasal Cannula Oxygen Flow Rate 3 3 04/09/23 21:05 04/09/23 21:10 04/09/23 21:15 Pulse Rate 86 85 86 Respiratory Rate 24 21 27 H Blood Pressure Pulse Oximetry 97 97 97 Oxygen Delivery Method Nasal Cannula Nasal Cannula Nasal Cannula Oxygen Flow Rate 3 3 3 04/09/23 21:20 04/09/23 21:25 04/09/23 21:30 Pulse Rate 88 83 Respiratory Rate 29 H 21 Blood Pressure 184/114 H Pulse Oximetry 96 97 Oxygen Delivery Method Nasal Cannula Nasal Cannula Oxygen Flow Rate 3 3 04/09/23 21:30 04/09/23 21:35 04/09/23 21:42 Pulse Rate 90 95 H 110 H Respiratory Rate 51 H 47 H 28 H Blood Pressure Pulse Oximetry 97 98 93 Oxygen Delivery Method Nasal Cannula Nasal Cannula Nasal Cannula Oxygen Flow Rate 3 3 3 04/09/23 21:42 04/09/23 21:50 04/09/23 21:57 Pulse Rate 104 H Respiratory Rate 19 Blood Pressure 165/119 H 136/83 Pulse Oximetry 87 L Oxygen Delivery Method Nasal Cannula Oxygen Flow Rate 3 04/09/23 22:00 04/09/23 22:01 04/09/23 22:01 Pulse Rate 95 H 96 H Respiratory Rate 26 H 21 Blood Pressure 93/47 L Pulse Oximetry 96 95 Oxygen Delivery Method Nasal Cannula Nasal Cannula Oxygen Flow Rate 5 5 04/09/23 22:04 04/09/23 22:04 04/09/23 22:05 Pulse Rate 94 H 93 H Respiratory Rate 25 H 19 Blood Pressure 144/95 H Pulse Oximetry 93 90 L Oxygen Delivery Method Nasal Cannula Nasal Cannula Oxygen Flow Rate 5 5 04/09/23 22:10 Pulse Rate 92 H Respiratory Rate 17 Blood Pressure Pulse Oximetry 99 Oxygen Delivery Method Nasal Cannula Oxygen Flow Rate 5 MDM - Back Pain/Injury <Modesta Aquino PA-C - Last Filed: 04/08/23 18:41> Lab Data 04/09/23 19:49 04/09/23 19:49 Labs: Lab Results 04/08/23 04/08/23 04/08/23 Range/Units 15:35 15:35 15:35 WBC 11.6 H (4.5-11.0) X10^3/uL RBC 4.50 (4.5-5.9) X10^6/uL Hgb 13.8 (13.5-17.5) g/dL Hct 41.0 (41-53) % MCV 91.0 (80-100) fL MCH 30.6 (26-34) PG MCHC 33.7 (30-36) % RDW 13.5 (11.6-14.8) % Plt Count 275 (150-400) X10^3/uL Neut % (Auto) 84.9 H (50-75) % Lymph % (Auto) 6.5 L (25-40) % [place] % (Auto) 7.1 (3-14) % Eos % (Auto) 1.3 L (2-4) % Baso % (Auto) 0.2 (0-2) % Neut # (Auto) 9800 H (7622-6567) /uL Lymph # (Auto) 800 L (2151-7686) /uL [place] # (Auto) 800 (0-900) /uL Eos # (Auto) 200 (0-450) /uL Baso # (Auto) 0 (0-100) /uL PT 13.8 H (10.1-12.7) SECONDS INR 1.2 (0.9-1.3) APTT 31 (26-36) SECONDS ABG pH (7.35-7.45) ABG pCO2 (35-45) mmHg ABG pO2 (80-100) mmHg ABG HCO3 (23-27) mmol/L ABG Total CO2 (23-27) mmol/L ABG O2 Saturation (95-100) % ABG Base Excess (-2-3) mmol/L FiO2 Sodium 139 (137-145) mmol/L Potassium 4.8 (3.4-5.1) mmol/L Chloride 103 (98-107) mmol/L Carbon Dioxide 26 (22-32) mmol/L BUN 22 H (9-20) mg/dL Creatinine 1.06 (0.66-1.25) mg/dL Estimated GFR > 60 (>60) mL/min BUN/Creatinine Ratio 20.8 (6-22) Glucose 130 H (80-110) mg/dL Calcium 10.5 H (8.4-10.2) mg/dL Total Bilirubin 0.8 (0.2-1.3) mg/dL AST 27 (17-59) IU/L ALT 35 (<50) IU/L Alkaline Phosphatase 85 (38-126) U/L Total Creatine Kinase (55-170) U/L Troponin I (0.01-0.034) ng/mL NT-Pro-B Natriuret Pep (<125) pg/mL Total Protein 8.2 (6.3-8.2) g/dL Albumin 4.4 (3.5-5.0) g/dL Globulin 3.8 (1.7-4.1) g/dL Albumin/Globulin Ratio 1.2 (1.0-2.8) Lipase 144 (23-300) U/L Chlamy pneumoniae PCR (Not Detect) Adenovirus (PCR) (Not Detect) B. pertussis DNA (PCR) (Not Detecte) B.parapertussis DNA PCR (Not Detecte) Coronavirus OC43 (PCR) (Not Detect) Coronavirus HKU1 (PCR) (Not Detect) Coronavirus 229E (PCR) (Not Detect) SARS-CoV-2 (PCR) (Not Detecte) Coronavirus NL63 (PCR) (Not Detect) Human Metapneumovir PCR (Not Detect) Influenza Type A (PCR) (Not Detect) Influenza Type B (PCR) (Not Detect) M. pneumoniae (PCR) (Not Detect) Parainfluenza 1 (PCR) (Not Detect) Parainfluenza 2 (PCR) (Not Detect) Parainfluenza 3 (PCR) (Not Detect) Parainfluenza 4 (PCR) (Not Detect) RSV (PCR) (Not Detect) Entero/Rhino (PCR) (Not Detect) 04/08/23 04/08/23 04/09/23 Range/Units 15:35 16:00 00:58 WBC (4.5-11.0) X10^3/uL RBC (4.5-5.9) X10^6/uL Hgb (13.5-17.5) g/dL Hct (41-53) % MCV (80-100) fL MCH (26-34) PG MCHC (30-36) % RDW (11.6-14.8) % Plt Count (150-400) X10^3/uL Neut % (Auto) (50-75) % Lymph % (Auto) (25-40) % [place] % (Auto) (3-14) % Eos % (Auto) (2-4) % Baso % (Auto) (0-2) % Neut # (Auto) (3948-8302) /uL Lymph # (Auto) (7398-4263) /uL [place] # (Auto) (0-900) /uL Eos # (Auto) (0-450) /uL Baso # (Auto) (0-100) /uL PT (10.1-12.7) SECONDS INR (0.9-1.3) APTT 52 H D (26-36) SECONDS ABG pH (7.35-7.45) ABG pCO2 (35-45) mmHg ABG pO2 (80-100) mmHg ABG HCO3 (23-27) mmol/L ABG Total CO2 (23-27) mmol/L ABG O2 Saturation (95-100) % ABG Base Excess (-2-3) mmol/L FiO2 Sodium (137-145) mmol/L Potassium (3.4-5.1) mmol/L Chloride (98-107) mmol/L Carbon Dioxide (22-32) mmol/L BUN (9-20) mg/dL Creatinine (0.66-1.25) mg/dL Estimated GFR (>60) mL/min BUN/Creatinine Ratio (6-22) Glucose (80-110) mg/dL Calcium (8.4-10.2) mg/dL Total Bilirubin (0.2-1.3) mg/dL AST (17-59) IU/L ALT (<50) IU/L Alkaline Phosphatase (38-126) U/L Total Creatine Kinase 27 L (55-170) U/L Troponin I < 0.012 (0.01-0.034) ng/mL NT-Pro-B Natriuret Pep 73 (<125) pg/mL Total Protein (6.3-8.2) g/dL Albumin (3.5-5.0) g/dL Globulin (1.7-4.1) g/dL Albumin/Globulin Ratio (1.0-2.8) Lipase (23-300) U/L Chlamy pneumoniae PCR Not detected (Not Detect) Adenovirus (PCR) Not detected (Not Detect) B. pertussis DNA (PCR) Not detected (Not Detecte) B.parapertussis DNA PCR Not detected (Not Detecte) Coronavirus OC43 (PCR) Not detected (Not Detect) Coronavirus HKU1 (PCR) Not detected (Not Detect) Coronavirus 229E (PCR) Not detected (Not Detect) SARS-CoV-2 (PCR) Not detected (Not Detecte) Coronavirus NL63 (PCR) Not detected (Not Detect) Human Metapneumovir PCR Not detected (Not Detect) Influenza Type A (PCR) Not detected (Not Detect) Influenza Type B (PCR) Not detected (Not Detect) M. pneumoniae (PCR) Not detected (Not Detect) Parainfluenza 1 (PCR) Not detected (Not Detect) Parainfluenza 2 (PCR) Not detected (Not Detect) Parainfluenza 3 (PCR) Not detected (Not Detect) Parainfluenza 4 (PCR) Not detected (Not Detect) RSV (PCR) Not detected (Not Detect) Entero/Rhino (PCR) Not detected (Not Detect) 04/09/23 04/09/23 04/09/23 Range/Units 07:40 07:40 14:26 WBC (4.5-11.0) X10^3/uL RBC (4.5-5.9) X10^6/uL Hgb 13.3 L (13.5-17.5) g/dL Hct 38.8 L (41-53) % MCV (80-100) fL MCH (26-34) PG MCHC (30-36) % RDW (11.6-14.8) % Plt Count 248 (150-400) X10^3/uL Neut % (Auto) (50-75) % Lymph % (Auto) (25-40) % [place] % (Auto) (3-14) % Eos % (Auto) (2-4) % Baso % (Auto) (0-2) % Neut # (Auto) (3706-4797) /uL Lymph # (Auto) (4134-6502) /uL [place] # (Auto) (0-900) /uL Eos # (Auto) (0-450) /uL Baso # (Auto) (0-100) /uL PT (10.1-12.7) SECONDS INR (0.9-1.3) APTT 58 H 54 H (26-36) SECONDS ABG pH (7.35-7.45) ABG pCO2 (35-45) mmHg ABG pO2 (80-100) mmHg ABG HCO3 (23-27) mmol/L ABG Total CO2 (23-27) mmol/L ABG O2 Saturation (95-100) % ABG Base Excess (-2-3) mmol/L FiO2 Sodium (137-145) mmol/L Potassium (3.4-5.1) mmol/L Chloride (98-107) mmol/L Carbon Dioxide (22-32) mmol/L BUN (9-20) mg/dL Creatinine (0.66-1.25) mg/dL Estimated GFR (>60) mL/min BUN/Creatinine Ratio (6-22) Glucose (80-110) mg/dL Calcium (8.4-10.2) mg/dL Total Bilirubin (0.2-1.3) mg/dL AST (17-59) IU/L ALT (<50) IU/L Alkaline Phosphatase (38-126) U/L Total Creatine Kinase (55-170) U/L Troponin I (0.01-0.034) ng/mL NT-Pro-B Natriuret Pep (<125) pg/mL Total Protein (6.3-8.2) g/dL Albumin (3.5-5.0) g/dL Globulin (1.7-4.1) g/dL Albumin/Globulin Ratio (1.0-2.8) Lipase (23-300) U/L Chlamy pneumoniae PCR (Not Detect) Adenovirus (PCR) (Not Detect) B. pertussis DNA (PCR) (Not Detecte) B.parapertussis DNA PCR (Not Detecte) Coronavirus OC43 (PCR) (Not Detect) Coronavirus HKU1 (PCR) (Not Detect) Coronavirus 229E (PCR) (Not Detect) SARS-CoV-2 (PCR) (Not Detecte) Coronavirus NL63 (PCR) (Not Detect) Human Metapneumovir PCR (Not Detect) Influenza Type A (PCR) (Not Detect) Influenza Type B (PCR) (Not Detect) M. pneumoniae (PCR) (Not Detect) Parainfluenza 1 (PCR) (Not Detect) Parainfluenza 2 (PCR) (Not Detect) Parainfluenza 3 (PCR) (Not Detect) Parainfluenza 4 (PCR) (Not Detect) RSV (PCR) (Not Detect) Entero/Rhino (PCR) (Not Detect) 04/09/23 04/09/23 04/09/23 Range/Units 18:00 19:49 19:49 WBC 11.4 H (4.5-11.0) X10^3/uL RBC 4.27 L (4.5-5.9) X10^6/uL Hgb 13.1 L (13.5-17.5) g/dL Hct 38.7 L (41-53) % MCV 90.6 (80-100) fL MCH 30.7 (26-34) PG MCHC 33.9 (30-36) % RDW 13.6 (11.6-14.8) % Plt Count 268 (150-400) X10^3/uL Neut % (Auto) 87.2 H (50-75) % Lymph % (Auto) 5.4 L (25-40) % [place] % (Auto) 6.7 (3-14) % Eos % (Auto) 0.4 L (2-4) % Baso % (Auto) 0.3 (0-2) % Neut # (Auto) 9900 H (2996-2703) /uL Lymph # (Auto) 600 L (0502-8854) /uL [place] # (Auto) 800 (0-900) /uL Eos # (Auto) 0 (0-450) /uL Baso # (Auto) 0 (0-100) /uL PT (10.1-12.7) SECONDS INR (0.9-1.3) APTT (26-36) SECONDS ABG pH 7.38 (7.35-7.45) ABG pCO2 43.4 (35-45) mmHg ABG pO2 65 L (80-100) mmHg ABG HCO3 26 (23-27) mmol/L ABG Total CO2 27 (23-27) mmol/L ABG O2 Saturation 92 L (95-100) % ABG Base Excess 1.0 (-2-3) mmol/L FiO2 28 Sodium 134 L (137-145) mmol/L Potassium 4.3 (3.4-5.1) mmol/L Chloride 99 (98-107) mmol/L Carbon Dioxide 30 (22-32) mmol/L BUN 13 (9-20) mg/dL Creatinine 0.87 (0.66-1.25) mg/dL Estimated GFR > 60 (>60) mL/min BUN/Creatinine Ratio 14.9 (6-22) Glucose 153 H (80-110) mg/dL Calcium 10.1 (8.4-10.2) mg/dL Total Bilirubin 1.1 (0.2-1.3) mg/dL AST 20 (17-59) IU/L ALT 30 (<50) IU/L Alkaline Phosphatase 87 (38-126) U/L Total Creatine Kinase (55-170) U/L Troponin I (0.01-0.034) ng/mL NT-Pro-B Natriuret Pep (<125) pg/mL Total Protein 7.8 (6.3-8.2) g/dL Albumin 4.1 (3.5-5.0) g/dL Globulin 3.7 (1.7-4.1) g/dL Albumin/Globulin Ratio 1.1 (1.0-2.8) Lipase (23-300) U/L Chlamy pneumoniae PCR (Not Detect) Adenovirus (PCR) (Not Detect) B. pertussis DNA (PCR) (Not Detecte) B.parapertussis DNA PCR (Not Detecte) Coronavirus OC43 (PCR) (Not Detect) Coronavirus HKU1 (PCR) (Not Detect) Coronavirus 229E (PCR) (Not Detect) SARS-CoV-2 (PCR) (Not Detecte) Coronavirus NL63 (PCR) (Not Detect) Human Metapneumovir PCR (Not Detect) Influenza Type A (PCR) (Not Detect) Influenza Type B (PCR) (Not Detect) M. pneumoniae (PCR) (Not Detect) Parainfluenza 1 (PCR) (Not Detect) Parainfluenza 2 (PCR) (Not Detect) Parainfluenza 3 (PCR) (Not Detect) Parainfluenza 4 (PCR) (Not Detect) RSV (PCR) (Not Detect) Entero/Rhino (PCR) (Not Detect) 04/09/23 Range/Units 20:58 WBC (4.5-11.0) X10^3/uL RBC (4.5-5.9) X10^6/uL Hgb (13.5-17.5) g/dL Hct (41-53) % MCV (80-100) fL MCH (26-34) PG MCHC (30-36) % RDW (11.6-14.8) % Plt Count (150-400) X10^3/uL Neut % (Auto) (50-75) % Lymph % (Auto) (25-40) % [place] % (Auto) (3-14) % Eos % (Auto) (2-4) % Baso % (Auto) (0-2) % Neut # (Auto) (9923-3844) /uL Lymph # (Auto) (4338-2577) /uL [place] # (Auto) (0-900) /uL Eos # (Auto) (0-450) /uL Baso # (Auto) (0-100) /uL PT (10.1-12.7) SECONDS INR (0.9-1.3) APTT 55 H (26-36) SECONDS ABG pH (7.35-7.45) ABG pCO2 (35-45) mmHg ABG pO2 (80-100) mmHg ABG HCO3 (23-27) mmol/L ABG Total CO2 (23-27) mmol/L ABG O2 Saturation (95-100) % ABG Base Excess (-2-3) mmol/L FiO2 Sodium (137-145) mmol/L Potassium (3.4-5.1) mmol/L Chloride (98-107) mmol/L Carbon Dioxide (22-32) mmol/L BUN (9-20) mg/dL Creatinine (0.66-1.25) mg/dL Estimated GFR (>60) mL/min BUN/Creatinine Ratio (6-22) Glucose (80-110) mg/dL Calcium (8.4-10.2) mg/dL Total Bilirubin (0.2-1.3) mg/dL AST (17-59) IU/L ALT (<50) IU/L Alkaline Phosphatase (38-126) U/L Total Creatine Kinase (55-170) U/L Troponin I (0.01-0.034) ng/mL NT-Pro-B Natriuret Pep (<125) pg/mL Total Protein (6.3-8.2) g/dL Albumin (3.5-5.0) g/dL Globulin (1.7-4.1) g/dL Albumin/Globulin Ratio (1.0-2.8) Lipase (23-300) U/L Chlamy pneumoniae PCR (Not Detect) Adenovirus (PCR) (Not Detect) B. pertussis DNA (PCR) (Not Detecte) B.parapertussis DNA PCR (Not Detecte) Coronavirus OC43 (PCR) (Not Detect) Coronavirus HKU1 (PCR) (Not Detect) Coronavirus 229E (PCR) (Not Detect) SARS-CoV-2 (PCR) (Not Detecte) Coronavirus NL63 (PCR) (Not Detect) Human Metapneumovir PCR (Not Detect) Influenza Type A (PCR) (Not Detect) Influenza Type B (PCR) (Not Detect) M. pneumoniae (PCR) (Not Detect) Parainfluenza 1 (PCR) (Not Detect) Parainfluenza 2 (PCR) (Not Detect) Parainfluenza 3 (PCR) (Not Detect) Parainfluenza 4 (PCR) (Not Detect) RSV (PCR) (Not Detect) Entero/Rhino (PCR) (Not Detect) Urine Dip Bedside Urine Glucose Negative Bedside Urine Bilirubin - Negative Bedside Urine Ketone - Negative Urine Specific [place] 1.020 Bedside Urine Occult Blood - Negative Bedside Urine pH 5.5 Bedside Urine Protein - Negative Bedside Urine Urobilinogen - Negative Bedside Urine Nitrite - Negative Bedside Urine Leukocytes - Negative Esterase MDM Narrative Medical decision making narrative: 62-year-old male with no reported past medical history presents to the ED with 2 days of pleuritic right lower rib pain. Concern for PE versus musculoskeletal sprain/strain versus pneumonia versus other. Will obtain labs, troponin, BNP, coags, CT PE, EKG. Labs, troponin, BNP, coags within normal limits. EKG is normal sinus rhythm, no acute ST-T change. CT PE shows fairly extensive pulmonary emboli in bilateral segmental and subsegmental branches of the pulmonary arteries. There are signs of early right heart strain. There are hazy ground-glass opacities seen scattered in right upper lobe, right middle lobe, left upper lobe and bilateral lower lobes extending to bilateral hilar region. This finding is most notably involving posterior aspect of right lower lobe and posterior lateral aspect of left lung base. There is a 4 mm slightly spiculated nodule seen in the anterior right lung base, solid nodules in the right upper lobe and left upper lobe. Started patient on heparin drip for anticoagulation. Started ceftriaxone and azithromycin. Will attempt to transfer patient to a facility with interventional capabilities. Patient is signed out to Dr. Corby Whitmore. <Dany Whitmore MD - Last Filed: 04/10/23 03:21> Lab Data Labs: Lab Results 04/08/23 04/08/23 04/08/23 Range/Units 15:35 15:35 15:35 WBC 11.6 H (4.5-11.0) X10^3/uL RBC 4.50 (4.5-5.9) X10^6/uL Hgb 13.8 (13.5-17.5) g/dL Hct 41.0 (41-53) % MCV 91.0 (80-100) fL MCH 30.6 (26-34) PG MCHC 33.7 (30-36) % RDW 13.5 (11.6-14.8) % Plt Count 275 (150-400) X10^3/uL Neut % (Auto) 84.9 H (50-75) % Lymph % (Auto) 6.5 L (25-40) % [place] % (Auto) 7.1 (3-14) % Eos % (Auto) 1.3 L (2-4) % Baso % (Auto) 0.2 (0-2) % Neut # (Auto) 9800 H (9116-0791) /uL Lymph # (Auto) 800 L (6474-4111) /uL [place] # (Auto) 800 (0-900) /uL Eos # (Auto) 200 (0-450) /uL Baso # (Auto) 0 (0-100) /uL PT 13.8 H (10.1-12.7) SECONDS INR 1.2 (0.9-1.3) APTT 31 (26-36) SECONDS ABG pH (7.35-7.45) ABG pCO2 (35-45) mmHg ABG pO2 (80-100) mmHg ABG HCO3 (23-27) mmol/L ABG Total CO2 (23-27) mmol/L ABG O2 Saturation (95-100) % ABG Base Excess (-2-3) mmol/L FiO2 Sodium 139 (137-145) mmol/L Potassium 4.8 (3.4-5.1) mmol/L Chloride 103 (98-107) mmol/L Carbon Dioxide 26 (22-32) mmol/L BUN 22 H (9-20) mg/dL Creatinine 1.06 (0.66-1.25) mg/dL Estimated GFR > 60 (>60) mL/min BUN/Creatinine Ratio 20.8 (6-22) Glucose 130 H (80-110) mg/dL Calcium 10.5 H (8.4-10.2) mg/dL Total Bilirubin 0.8 (0.2-1.3) mg/dL AST 27 (17-59) IU/L ALT 35 (<50) IU/L Alkaline Phosphatase 85 (38-126) U/L Total Creatine Kinase (55-170) U/L Troponin I (0.01-0.034) ng/mL NT-Pro-B Natriuret Pep (<125) pg/mL Total Protein 8.2 (6.3-8.2) g/dL Albumin 4.4 (3.5-5.0) g/dL Globulin 3.8 (1.7-4.1) g/dL Albumin/Globulin Ratio 1.2 (1.0-2.8) Lipase 144 (23-300) U/L Chlamy pneumoniae PCR (Not Detect) Adenovirus (PCR) (Not Detect) B. pertussis DNA (PCR) (Not Detecte) B.parapertussis DNA PCR (Not Detecte) Coronavirus OC43 (PCR) (Not Detect) Coronavirus HKU1 (PCR) (Not Detect) Coronavirus 229E (PCR) (Not Detect) SARS-CoV-2 (PCR) (Not Detecte) Coronavirus NL63 (PCR) (Not Detect) Human Metapneumovir PCR (Not Detect) Influenza Type A (PCR) (Not Detect) Influenza Type B (PCR) (Not Detect) M. pneumoniae (PCR) (Not Detect) Parainfluenza 1 (PCR) (Not Detect) Parainfluenza 2 (PCR) (Not Detect) Parainfluenza 3 (PCR) (Not Detect) Parainfluenza 4 (PCR) (Not Detect) RSV (PCR) (Not Detect) Entero/Rhino (PCR) (Not Detect) 04/08/23 04/08/23 04/09/23 Range/Units 15:35 16:00 00:58 WBC (4.5-11.0) X10^3/uL RBC (4.5-5.9) X10^6/uL Hgb (13.5-17.5) g/dL Hct (41-53) % MCV (80-100) fL MCH (26-34) PG MCHC (30-36) % RDW (11.6-14.8) % Plt Count (150-400) X10^3/uL Neut % (Auto) (50-75) % Lymph % (Auto) (25-40) % [place] % (Auto) (3-14) % Eos % (Auto) (2-4) % Baso % (Auto) (0-2) % Neut # (Auto) (8291-3076) /uL Lymph # (Auto) (0454-2553) /uL [place] # (Auto) (0-900) /uL Eos # (Auto) (0-450) /uL Baso # (Auto) (0-100) /uL PT (10.1-12.7) SECONDS INR (0.9-1.3) APTT 52 H D (26-36) SECONDS ABG pH (7.35-7.45) ABG pCO2 (35-45) mmHg ABG pO2 (80-100) mmHg ABG HCO3 (23-27) mmol/L ABG Total CO2 (23-27) mmol/L ABG O2 Saturation (95-100) % ABG Base Excess (-2-3) mmol/L FiO2 Sodium (137-145) mmol/L Potassium (3.4-5.1) mmol/L Chloride (98-107) mmol/L Carbon Dioxide (22-32) mmol/L BUN (9-20) mg/dL Creatinine (0.66-1.25) mg/dL Estimated GFR (>60) mL/min BUN/Creatinine Ratio (6-22) Glucose (80-110) mg/dL Calcium (8.4-10.2) mg/dL Total Bilirubin (0.2-1.3) mg/dL AST (17-59) IU/L ALT (<50) IU/L Alkaline Phosphatase (38-126) U/L Total Creatine Kinase 27 L (55-170) U/L Troponin I < 0.012 (0.01-0.034) ng/mL NT-Pro-B Natriuret Pep 73 (<125) pg/mL Total Protein (6.3-8.2) g/dL Albumin (3.5-5.0) g/dL Globulin (1.7-4.1) g/dL Albumin/Globulin Ratio (1.0-2.8) Lipase (23-300) U/L Chlamy pneumoniae PCR Not detected (Not Detect) Adenovirus (PCR) Not detected (Not Detect) B. pertussis DNA (PCR) Not detected (Not Detecte) B.parapertussis DNA PCR Not detected (Not Detecte) Coronavirus OC43 (PCR) Not detected (Not Detect) Coronavirus HKU1 (PCR) Not detected (Not Detect) Coronavirus 229E (PCR) Not detected (Not Detect) SARS-CoV-2 (PCR) Not detected (Not Detecte) Coronavirus NL63 (PCR) Not detected (Not Detect) Human Metapneumovir PCR Not detected (Not Detect) Influenza Type A (PCR) Not detected (Not Detect) Influenza Type B (PCR) Not detected (Not Detect) M. pneumoniae (PCR) Not detected (Not Detect) Parainfluenza 1 (PCR) Not detected (Not Detect) Parainfluenza 2 (PCR) Not detected (Not Detect) Parainfluenza 3 (PCR) Not detected (Not Detect) Parainfluenza 4 (PCR) Not detected (Not Detect) RSV (PCR) Not detected (Not Detect) Entero/Rhino (PCR) Not detected (Not Detect) 04/09/23 04/09/23 04/09/23 Range/Units 07:40 07:40 14:26 WBC (4.5-11.0) X10^3/uL RBC (4.5-5.9) X10^6/uL Hgb 13.3 L (13.5-17.5) g/dL Hct 38.8 L (41-53) % MCV (80-100) fL MCH (26-34) PG MCHC (30-36) % RDW (11.6-14.8) % Plt Count 248 (150-400) X10^3/uL Neut % (Auto) (50-75) % Lymph % (Auto) (25-40) % [place] % (Auto) (3-14) % Eos % (Auto) (2-4) % Baso % (Auto) (0-2) % Neut # (Auto) (5406-0757) /uL Lymph # (Auto) (2749-5083) /uL [place] # (Auto) (0-900) /uL Eos # (Auto) (0-450) /uL Baso # (Auto) (0-100) /uL PT (10.1-12.7) SECONDS INR (0.9-1.3) APTT 58 H 54 H (26-36) SECONDS ABG pH (7.35-7.45) ABG pCO2 (35-45) mmHg ABG pO2 (80-100) mmHg ABG HCO3 (23-27) mmol/L ABG Total CO2 (23-27) mmol/L ABG O2 Saturation (95-100) % ABG Base Excess (-2-3) mmol/L FiO2 Sodium (137-145) mmol/L Potassium (3.4-5.1) mmol/L Chloride (98-107) mmol/L Carbon Dioxide (22-32) mmol/L BUN (9-20) mg/dL Creatinine (0.66-1.25) mg/dL Estimated GFR (>60) mL/min BUN/Creatinine Ratio (6-22) Glucose (80-110) mg/dL Calcium (8.4-10.2) mg/dL Total Bilirubin (0.2-1.3) mg/dL AST (17-59) IU/L ALT (<50) IU/L Alkaline Phosphatase (38-126) U/L Total Creatine Kinase (55-170) U/L Troponin I (0.01-0.034) ng/mL NT-Pro-B Natriuret Pep (<125) pg/mL Total Protein (6.3-8.2) g/dL Albumin (3.5-5.0) g/dL Globulin (1.7-4.1) g/dL Albumin/Globulin Ratio (1.0-2.8) Lipase (23-300) U/L Chlamy pneumoniae PCR (Not Detect) Adenovirus (PCR) (Not Detect) B. pertussis DNA (PCR) (Not Detecte) B.parapertussis DNA PCR (Not Detecte) Coronavirus OC43 (PCR) (Not Detect) Coronavirus HKU1 (PCR) (Not Detect) Coronavirus 229E (PCR) (Not Detect) SARS-CoV-2 (PCR) (Not Detecte) Coronavirus NL63 (PCR) (Not Detect) Human Metapneumovir PCR (Not Detect) Influenza Type A (PCR) (Not Detect) Influenza Type B (PCR) (Not Detect) M. pneumoniae (PCR) (Not Detect) Parainfluenza 1 (PCR) (Not Detect) Parainfluenza 2 (PCR) (Not Detect) Parainfluenza 3 (PCR) (Not Detect) Parainfluenza 4 (PCR) (Not Detect) RSV (PCR) (Not Detect) Entero/Rhino (PCR) (Not Detect) 04/09/23 04/09/23 04/09/23 Range/Units 18:00 19:49 19:49 WBC 11.4 H (4.5-11.0) X10^3/uL RBC 4.27 L (4.5-5.9) X10^6/uL Hgb 13.1 L (13.5-17.5) g/dL Hct 38.7 L (41-53) % MCV 90.6 (80-100) fL MCH 30.7 (26-34) PG MCHC 33.9 (30-36) % RDW 13.6 (11.6-14.8) % Plt Count 268 (150-400) X10^3/uL Neut % (Auto) 87.2 H (50-75) % Lymph % (Auto) 5.4 L (25-40) % [place] % (Auto) 6.7 (3-14) % Eos % (Auto) 0.4 L (2-4) % Baso % (Auto) 0.3 (0-2) % Neut # (Auto) 9900 H (0178-8252) /uL Lymph # (Auto) 600 L (3580-2559) /uL [place] # (Auto) 800 (0-900) /uL Eos # (Auto) 0 (0-450) /uL Baso # (Auto) 0 (0-100) /uL PT (10.1-12.7) SECONDS INR (0.9-1.3) APTT (26-36) SECONDS ABG pH 7.38 (7.35-7.45) ABG pCO2 43.4 (35-45) mmHg ABG pO2 65 L (80-100) mmHg ABG HCO3 26 (23-27) mmol/L ABG Total CO2 27 (23-27) mmol/L ABG O2 Saturation 92 L (95-100) % ABG Base Excess 1.0 (-2-3) mmol/L FiO2 28 Sodium 134 L (137-145) mmol/L Potassium 4.3 (3.4-5.1) mmol/L Chloride 99 (98-107) mmol/L Carbon Dioxide 30 (22-32) mmol/L BUN 13 (9-20) mg/dL Creatinine 0.87 (0.66-1.25) mg/dL Estimated GFR > 60 (>60) mL/min BUN/Creatinine Ratio 14.9 (6-22) Glucose 153 H (80-110) mg/dL Calcium 10.1 (8.4-10.2) mg/dL Total Bilirubin 1.1 (0.2-1.3) mg/dL AST 20 (17-59) IU/L ALT 30 (<50) IU/L Alkaline Phosphatase 87 (38-126) U/L Total Creatine Kinase (55-170) U/L Troponin I (0.01-0.034) ng/mL NT-Pro-B Natriuret Pep (<125) pg/mL Total Protein 7.8 (6.3-8.2) g/dL Albumin 4.1 (3.5-5.0) g/dL Globulin 3.7 (1.7-4.1) g/dL Albumin/Globulin Ratio 1.1 (1.0-2.8) Lipase (23-300) U/L Chlamy pneumoniae PCR (Not Detect) Adenovirus (PCR) (Not Detect) B. pertussis DNA (PCR) (Not Detecte) B.parapertussis DNA PCR (Not Detecte) Coronavirus OC43 (PCR) (Not Detect) Coronavirus HKU1 (PCR) (Not Detect) Coronavirus 229E (PCR) (Not Detect) SARS-CoV-2 (PCR) (Not Detecte) Coronavirus NL63 (PCR) (Not Detect) Human Metapneumovir PCR (Not Detect) Influenza Type A (PCR) (Not Detect) Influenza Type B (PCR) (Not Detect) M. pneumoniae (PCR) (Not Detect) Parainfluenza 1 (PCR) (Not Detect) Parainfluenza 2 (PCR) (Not Detect) Parainfluenza 3 (PCR) (Not Detect) Parainfluenza 4 (PCR) (Not Detect) RSV (PCR) (Not Detect) Entero/Rhino (PCR) (Not Detect) 04/09/23 Range/Units 20:58 WBC (4.5-11.0) X10^3/uL RBC (4.5-5.9) X10^6/uL Hgb (13.5-17.5) g/dL Hct (41-53) % MCV (80-100) fL MCH (26-34) PG MCHC (30-36) % RDW (11.6-14.8) % Plt Count (150-400) X10^3/uL Neut % (Auto) (50-75) % Lymph % (Auto) (25-40) % [place] % (Auto) (3-14) % Eos % (Auto) (2-4) % Baso % (Auto) (0-2) % Neut # (Auto) (6893-2506) /uL Lymph # (Auto) (9355-3480) /uL [place] # (Auto) (0-900) /uL Eos # (Auto) (0-450) /uL Baso # (Auto) (0-100) /uL PT (10.1-12.7) SECONDS INR (0.9-1.3) APTT 55 H (26-36) SECONDS ABG pH (7.35-7.45) ABG pCO2 (35-45) mmHg ABG pO2 (80-100) mmHg ABG HCO3 (23-27) mmol/L ABG Total CO2 (23-27) mmol/L ABG O2 Saturation (95-100) % ABG Base Excess (-2-3) mmol/L FiO2 Sodium (137-145) mmol/L Potassium (3.4-5.1) mmol/L Chloride (98-107) mmol/L Carbon Dioxide (22-32) mmol/L BUN (9-20) mg/dL Creatinine (0.66-1.25) mg/dL Estimated GFR (>60) mL/min BUN/Creatinine Ratio (6-22) Glucose (80-110) mg/dL Calcium (8.4-10.2) mg/dL Total Bilirubin (0.2-1.3) mg/dL AST (17-59) IU/L ALT (<50) IU/L Alkaline Phosphatase (38-126) U/L Total Creatine Kinase (55-170) U/L Troponin I (0.01-0.034) ng/mL NT-Pro-B Natriuret Pep (<125) pg/mL Total Protein (6.3-8.2) g/dL Albumin (3.5-5.0) g/dL Globulin (1.7-4.1) g/dL Albumin/Globulin Ratio (1.0-2.8) Lipase (23-300) U/L Chlamy pneumoniae PCR (Not Detect) Adenovirus (PCR) (Not Detect) B. pertussis DNA (PCR) (Not Detecte) B.parapertussis DNA PCR (Not Detecte) Coronavirus OC43 (PCR) (Not Detect) Coronavirus HKU1 (PCR) (Not Detect) Coronavirus 229E (PCR) (Not Detect) SARS-CoV-2 (PCR) (Not Detecte) Coronavirus NL63 (PCR) (Not Detect) Human Metapneumovir PCR (Not Detect) Influenza Type A (PCR) (Not Detect) Influenza Type B (PCR) (Not Detect) M. pneumoniae (PCR) (Not Detect) Parainfluenza 1 (PCR) (Not Detect) Parainfluenza 2 (PCR) (Not Detect) Parainfluenza 3 (PCR) (Not Detect) Parainfluenza 4 (PCR) (Not Detect) RSV (PCR) (Not Detect) Entero/Rhino (PCR) (Not Detect) Urine Dip Bedside Urine Glucose Negative Bedside Urine Bilirubin - Negative Bedside Urine Ketone - Negative Urine Specific [place] 1.020 Bedside Urine Occult Blood - Negative Bedside Urine pH 5.5 Bedside Urine Protein - Negative Bedside Urine Urobilinogen - Negative Bedside Urine Nitrite - Negative Bedside Urine Leukocytes - Negative Esterase MDM Narrative Medical decision making narrative: 62-year-old male with no reported past medical history presents to the ED with 2 days of pleuritic right lower rib pain. Concern for PE versus musculoskeletal sprain/strain versus pneumonia versus other. Will obtain labs, troponin, BNP, coags, CT PE, EKG. Labs, troponin, BNP, coags within normal limits. EKG is normal sinus rhythm, no acute ST-T change. CT PE shows fairly extensive pulmonary emboli in bilateral segmental and subsegmental branches of the pulmonary arteries. There are signs of early right heart strain. There are hazy ground-glass opacities seen scattered in right upper lobe, right middle lobe, left upper lobe and bilateral lower lobes extending to bilateral hilar region. This finding is most notably involving posterior aspect of right lower lobe and posterior lateral aspect of left lung base. There is a 4 mm slightly spiculated nodule seen in the anterior right lung base, solid nodules in the right upper lobe and left upper lobe. Started patient on heparin drip for anticoagulation. Started ceftriaxone and azithromycin. Will attempt to transfer patient to a facility with interventional capabilities. Patient is signed out to Dr. Corby Whitmore. Myranda : I have received sign-out from nurse practitioner. We are waiting for facility to accept patient. He is currently stable. Is on heparin and Rocephin and Zithromax. 10:53 p.m.. I spoke with [facility] scientific research associate, dr aleman, no echoes indicated. He does agree patient can be managed at [facility]. Agrees with current management. Admit to hospitalist at [facility]. I updated patient and family we are waiting for Hospital with appropriate resources. 11:15 p.m.. [facility] has called back, transfer center/supervisor [facility] informs me that they do not have ICU capability tonight. Unable to accept patient at this time. 1:00 a.m.. Patient had experienced right lower chest pain worse with movement and deep breath. Morphine previously was not helpful for pain management. Patient is getting much better with Dilaudid here. Vital signs are stable. Th ere are no other hospitalist with ICU capability at this time. April 09, 2023 at 7:00 a.m. sign out to Dr. Kuo, waiting for ICU bed availability, chiefly at [facility] as they are the hospital that called back last night. They may have ICU bed this morning. April 09, 2023 at 7:00 p.m.. Sign-out from Dr. Kuo, echocardiogram at the sinus reassuring. He has reviewed with multiple providers outside the hospital including Cardiology and patient does not need to be transferred. No intervention indicated. Patient can be admitted here. He has reviewed this with Dr. Garcia, hospitalist at this facility. <Puma Kuo MD - Last Filed: 07/13/23 20:18> Lab Data Labs: Lab Results 04/08/23 04/08/23 04/08/23 Range/Units 15:35 15:35 15:35 WBC 11.6 H (4.5-11.0) X10^3/uL RBC 4.50 (4.5-5.9) X10^6/uL Hgb 13.8 (13.5-17.5) g/dL Hct 41.0 (41-53) % MCV 91.0 (80-100) fL MCH 30.6 (26-34) PG MCHC 33.7 (30-36) % RDW 13.5 (11.6-14.8) % Plt Count 275 (150-400) X10^3/uL Neut % (Auto) 84.9 H (50-75) % Lymph % (Auto) 6.5 L (25-40) % [place] % (Auto) 7.1 (3-14) % Eos % (Auto) 1.3 L (2-4) % Baso % (Auto) 0.2 (0-2) % Neut # (Auto) 9800 H (8896-5617) /uL Lymph # (Auto) 800 L (7164-3970) /uL [place] # (Auto) 800 (0-900) /uL Eos # (Auto) 200 (0-450) /uL Baso # (Auto) 0 (0-100) /uL PT 13.8 H (10.1-12.7) SECONDS INR 1.2 (0.9-1.3) APTT 31 (26-36) SECONDS ABG pH (7.35-7.45) ABG pCO2 (35-45) mmHg ABG pO2 (80-100) mmHg ABG HCO3 (23-27) mmol/L ABG Total CO2 (23-27) mmol/L ABG O2 Saturation (95-100) % ABG Base Excess (-2-3) mmol/L FiO2 Sodium 139 (137-145) mmol/L Potassium 4.8 (3.4-5.1) mmol/L Chloride 103 (98-107) mmol/L Carbon Dioxide 26 (22-32) mmol/L BUN 22 H (9-20) mg/dL Creatinine 1.06 (0.66-1.25) mg/dL Estimated GFR > 60 (>60) mL/min BUN/Creatinine Ratio 20.8 (6-22) Glucose 130 H (80-110) mg/dL Calcium 10.5 H (8.4-10.2) mg/dL Total Bilirubin 0.8 (0.2-1.3) mg/dL AST 27 (17-59) IU/L ALT 35 (<50) IU/L Alkaline Phosphatase 85 (38-126) U/L Total Creatine Kinase (55-170) U/L Troponin I (0.01-0.034) ng/mL NT-Pro-B Natriuret Pep (<125) pg/mL Total Protein 8.2 (6.3-8.2) g/dL Albumin 4.4 (3.5-5.0) g/dL Globulin 3.8 (1.7-4.1) g/dL Albumin/Globulin Ratio 1.2 (1.0-2.8) Lipase 144 (23-300) U/L Chlamy pneumoniae PCR (Not Detect) Adenovirus (PCR) (Not Detect) B. pertussis DNA (PCR) (Not Detecte) B.parapertussis DNA PCR (Not Detecte) Coronavirus OC43 (PCR) (Not Detect) Coronavirus HKU1 (PCR) (Not Detect) Coronavirus 229E (PCR) (Not Detect) SARS-CoV-2 (PCR) (Not Detecte) Coronavirus NL63 (PCR) (Not Detect) Human Metapneumovir PCR (Not Detect) Influenza Type A (PCR) (Not Detect) Influenza Type B (PCR) (Not Detect) M. pneumoniae (PCR) (Not Detect) Parainfluenza 1 (PCR) (Not Detect) Parainfluenza 2 (PCR) (Not Detect) Parainfluenza 3 (PCR) (Not Detect) Parainfluenza 4 (PCR) (Not Detect) RSV (PCR) (Not Detect) Entero/Rhino (PCR) (Not Detect) 04/08/23 04/08/23 04/09/23 Range/Units 15:35 16:00 00:58 WBC (4.5-11.0) X10^3/uL RBC (4.5-5.9) X10^6/uL Hgb (13.5-17.5) g/dL Hct (41-53) % MCV (80-100) fL MCH (26-34) PG MCHC (30-36) % RDW (11.6-14.8) % Plt Count (150-400) X10^3/uL Neut % (Auto) (50-75) % Lymph % (Auto) (25-40) % [place] % (Auto) (3-14) % Eos % (Auto) (2-4) % Baso % (Auto) (0-2) % Neut # (Auto) (8159-6348) /uL Lymph # (Auto) (8426-6418) /uL [place] # (Auto) (0-900) /uL Eos # (Auto) (0-450) /uL Baso # (Auto) (0-100) /uL PT (10.1-12.7) SECONDS INR (0.9-1.3) APTT 52 H D (26-36) SECONDS ABG pH (7.35-7.45) ABG pCO2 (35-45) mmHg ABG pO2 (80-100) mmHg ABG HCO3 (23-27) mmol/L ABG Total CO2 (23-27) mmol/L ABG O2 Saturation (95-100) % ABG Base Excess (-2-3) mmol/L FiO2 Sodium (137-145) mmol/L Potassium (3.4-5.1) mmol/L Chloride (98-107) mmol/L Carbon Dioxide (22-32) mmol/L BUN (9-20) mg/dL Creatinine (0.66-1.25) mg/dL Estimated GFR (>60) mL/min BUN/Creatinine Ratio (6-22) Glucose (80-110) mg/dL Calcium (8.4-10.2) mg/dL Total Bilirubin (0.2-1.3) mg/dL AST (17-59) IU/L ALT (<50) IU/L Alkaline Phosphatase (38-126) U/L Total Creatine Kinase 27 L (55-170) U/L Troponin I < 0.012 (0.01-0.034) ng/mL NT-Pro-B Natriuret Pep 73 (<125) pg/mL Total Protein (6.3-8.2) g/dL Albumin (3.5-5.0) g/dL Globulin (1.7-4.1) g/dL Albumin/Globulin Ratio (1.0-2.8) Lipase (23-300) U/L Chlamy pneumoniae PCR Not detected (Not Detect) Adenovirus (PCR) Not detected (Not Detect) B. pertussis DNA (PCR) Not detected (Not Detecte) B.parapertussis DNA PCR Not detected (Not Detecte) Coronavirus OC43 (PCR) Not detected (Not Detect) Coronavirus HKU1 (PCR) Not detected (Not Detect) Coronavirus 229E (PCR) Not detected (Not Detect) SARS-CoV-2 (PCR) Not detected (Not Detecte) Coronavirus NL63 (PCR) Not detected (Not Detect) Human Metapneumovir PCR Not detected (Not Detect) Influenza Type A (PCR) Not detected (Not Detect) Influenza Type B (PCR) Not detected (Not Detect) M. pneumoniae (PCR) Not detected (Not Detect) Parainfluenza 1 (PCR) Not detected (Not Detect) Parainfluenza 2 (PCR) Not detected (Not Detect) Parainfluenza 3 (PCR) Not detected (Not Detect) Parainfluenza 4 (PCR) Not detected (Not Detect) RSV (PCR) Not detected (Not Detect) Entero/Rhino (PCR) Not detected (Not Detect) 04/09/23 04/09/23 04/09/23 Range/Units 07:40 07:40 14:26 WBC (4.5-11.0) X10^3/uL RBC (4.5-5.9) X10^6/uL Hgb 13.3 L (13.5-17.5) g/dL Hct 38.8 L (41-53) % MCV (80-100) fL MCH (26-34) PG MCHC (30-36) % RDW (11.6-14.8) % Plt Count 248 (150-400) X10^3/uL Neut % (Auto) (50-75) % Lymph % (Auto) (25-40) % [place] % (Auto) (3-14) % Eos % (Auto) (2-4) % Baso % (Auto) (0-2) % Neut # (Auto) (9755-4683) /uL Lymph # (Auto) (6043-2149) /uL [place] # (Auto) (0-900) /uL Eos # (Auto) (0-450) /uL Baso # (Auto) (0-100) /uL PT (10.1-12.7) SECONDS INR (0.9-1.3) APTT 58 H 54 H (26-36) SECONDS ABG pH (7.35-7.45) ABG pCO2 (35-45) mmHg ABG pO2 (80-100) mmHg ABG HCO3 (23-27) mmol/L ABG Total CO2 (23-27) mmol/L ABG O2 Saturation (95-100) % ABG Base Excess (-2-3) mmol/L FiO2 Sodium (137-145) mmol/L Potassium (3.4-5.1) mmol/L Chloride (98-107) mmol/L Carbon Dioxide (22-32) mmol/L BUN (9-20) mg/dL Creatinine (0.66-1.25) mg/dL Estimated GFR (>60) mL/min BUN/Creatinine Ratio (6-22) Glucose (80-110) mg/dL Calcium (8.4-10.2) mg/dL Total Bilirubin (0.2-1.3) mg/dL AST (17-59) IU/L ALT (<50) IU/L Alkaline Phosphatase (38-126) U/L Total Creatine Kinase (55-170) U/L Troponin I (0.01-0.034) ng/mL NT-Pro-B Natriuret Pep (<125) pg/mL Total Protein (6.3-8.2) g/dL Albumin (3.5-5.0) g/dL Globulin (1.7-4.1) g/dL Albumin/Globulin Ratio (1.0-2.8) Lipase (23-300) U/L Chlamy pneumoniae PCR (Not Detect) Adenovirus (PCR) (Not Detect) B. pertussis DNA (PCR) (Not Detecte) B.parapertussis DNA PCR (Not Detecte) Coronavirus OC43 (PCR) (Not Detect) Coronavirus HKU1 (PCR) (Not Detect) Coronavirus 229E (PCR) (Not Detect) SARS-CoV-2 (PCR) (Not Detecte) Coronavirus NL63 (PCR) (Not Detect) Human Metapneumovir PCR (Not Detect) Influenza Type A (PCR) (Not Detect) Influenza Type B (PCR) (Not Detect) M. pneumoniae (PCR) (Not Detect) Parainfluenza 1 (PCR) (Not Detect) Parainfluenza 2 (PCR) (Not Detect) Parainfluenza 3 (PCR) (Not Detect) Parainfluenza 4 (PCR) (Not Detect) RSV (PCR) (Not Detect) Entero/Rhino (PCR) (Not Detect) 04/09/23 04/09/23 04/09/23 Range/Units 18:00 19:49 19:49 WBC 11.4 H (4.5-11.0) X10^3/uL RBC 4.27 L (4.5-5.9) X10^6/uL Hgb 13.1 L (13.5-17.5) g/dL Hct 38.7 L (41-53) % MCV 90.6 (80-100) fL MCH 30.7 (26-34) PG MCHC 33.9 (30-36) % RDW 13.6 (11.6-14.8) % Plt Count 268 (150-400) X10^3/uL Neut % (Auto) 87.2 H (50-75) % Lymph % (Auto) 5.4 L (25-40) % [place] % (Auto) 6.7 (3-14) % Eos % (Auto) 0.4 L (2-4) % Baso % (Auto) 0.3 (0-2) % Neut # (Auto) 9900 H (1650-5968) /uL Lymph # (Auto) 600 L (7189-5009) /uL [place] # (Auto) 800 (0-900) /uL Eos # (Auto) 0 (0-450) /uL Baso # (Auto) 0 (0-100) /uL PT (10.1-12.7) SECONDS INR (0.9-1.3) APTT (26-36) SECONDS ABG pH 7.38 (7.35-7.45) ABG pCO2 43.4 (35-45) mmHg ABG pO2 65 L (80-100) mmHg ABG HCO3 26 (23-27) mmol/L ABG Total CO2 27 (23-27) mmol/L ABG O2 Saturation 92 L (95-100) % ABG Base Excess 1.0 (-2-3) mmol/L FiO2 28 Sodium 134 L (137-145) mmol/L Potassium 4.3 (3.4-5.1) mmol/L Chloride 99 (98-107) mmol/L Carbon Dioxide 30 (22-32) mmol/L BUN 13 (9-20) mg/dL Creatinine 0.87 (0.66-1.25) mg/dL Estimated GFR > 60 (>60) mL/min BUN/Creatinine Ratio 14.9 (6-22) Glucose 153 H (80-110) mg/dL Calcium 10.1 (8.4-10.2) mg/dL Total Bilirubin 1.1 (0.2-1.3) mg/dL AST 20 (17-59) IU/L ALT 30 (<50) IU/L Alkaline Phosphatase 87 (38-126) U/L Total Creatine Kinase (55-170) U/L Troponin I (0.01-0.034) ng/mL NT-Pro-B Natriuret Pep (<125) pg/mL Total Protein 7.8 (6.3-8.2) g/dL Albumin 4.1 (3.5-5.0) g/dL Globulin 3.7 (1.7-4.1) g/dL Albumin/Globulin Ratio 1.1 (1.0-2.8) Lipase (23-300) U/L Chlamy pneumoniae PCR (Not Detect) Adenovirus (PCR) (Not Detect) B. pertussis DNA (PCR) (Not Detecte) B.parapertussis DNA PCR (Not Detecte) Coronavirus OC43 (PCR) (Not Detect) Coronavirus HKU1 (PCR) (Not Detect) Coronavirus 229E (PCR) (Not Detect) SARS-CoV-2 (PCR) (Not Detecte) Coronavirus NL63 (PCR) (Not Detect) Human Metapneumovir PCR (Not Detect) Influenza Type A (PCR) (Not Detect) Influenza Type B (PCR) (Not Detect) M. pneumoniae (PCR) (Not Detect) Parainfluenza 1 (PCR) (Not Detect) Parainfluenza 2 (PCR) (Not Detect) Parainfluenza 3 (PCR) (Not Detect) Parainfluenza 4 (PCR) (Not Detect) RSV (PCR) (Not Detect) Entero/Rhino (PCR) (Not Detect) 04/09/23 Range/Units 20:58 WBC (4.5-11.0) X10^3/uL RBC (4.5-5.9) X10^6/uL Hgb (13.5-17.5) g/dL Hct (41-53) % MCV (80-100) fL MCH (26-34) PG MCHC (30-36) % RDW (11.6-14.8) % Plt Count (150-400) X10^3/uL Neut % (Auto) (50-75) % Lymph % (Auto) (25-40) % [place] % (Auto) (3-14) % Eos % (Auto) (2-4) % Baso % (Auto) (0-2) % Neut # (Auto) (4015-1246) /uL Lymph # (Auto) (6068-2608) /uL [place] # (Auto) (0-900) /uL Eos # (Auto) (0-450) /uL Baso # (Auto) (0-100) /uL PT (10.1-12.7) SECONDS INR (0.9-1.3) APTT 55 H (26-36) SECONDS ABG pH (7.35-7.45) ABG pCO2 (35-45) mmHg ABG pO2 (80-100) mmHg ABG HCO3 (23-27) mmol/L ABG Total CO2 (23-27) mmol/L ABG O2 Saturation (95-100) % ABG Base Excess (-2-3) mmol/L FiO2 Sodium (137-145) mmol/L Potassium (3.4-5.1) mmol/L Chloride (98-107) mmol/L Carbon Dioxide (22-32) mmol/L BUN (9-20) mg/dL Creatinine (0.66-1.25) mg/dL Estimated GFR (>60) mL/min BUN/Creatinine Ratio (6-22) Glucose (80-110) mg/dL Calcium (8.4-10.2) mg/dL Total Bilirubin (0.2-1.3) mg/dL AST (17-59) IU/L ALT (<50) IU/L Alkaline Phosphatase (38-126) U/L Total Creatine Kinase (55-170) U/L Troponin I (0.01-0.034) ng/mL NT-Pro-B Natriuret Pep (<125) pg/mL Total Protein (6.3-8.2) g/dL Albumin (3.5-5.0) g/dL Globulin (1.7-4.1) g/dL Albumin/Globulin Ratio (1.0-2.8) Lipase (23-300) U/L Chlamy pneumoniae PCR (Not Detect) Adenovirus (PCR) (Not Detect) B. pertussis DNA (PCR) (Not Detecte) B.parapertussis DNA PCR (Not Detecte) Coronavirus OC43 (PCR) (Not Detect) Coronavirus HKU1 (PCR) (Not Detect) Coronavirus 229E (PCR) (Not Detect) SARS-CoV-2 (PCR) (Not Detecte) Coronavirus NL63 (PCR) (Not Detect) Human Metapneumovir PCR (Not Detect) Influenza Type A (PCR) (Not Detect) Influenza Type B (PCR) (Not Detect) M. pneumoniae (PCR) (Not Detect) Parainfluenza 1 (PCR) (Not Detect) Parainfluenza 2 (PCR) (Not Detect) Parainfluenza 3 (PCR) (Not Detect) Parainfluenza 4 (PCR) (Not Detect) RSV (PCR) (Not Detect) Entero/Rhino (PCR) (Not Detect) Urine Dip Bedside Urine Glucose Negative Bedside Urine Bilirubin - Negative Bedside Urine Ketone - Negative Urine Specific [place] 1.020 Bedside Urine Occult Blood - Negative Bedside Urine pH 5.5 Bedside Urine Protein - Negative Bedside Urine Urobilinogen - Negative Bedside Urine Nitrite - Negative Bedside Urine Leukocytes - Negative Esterase <Puma Kuo MD - Last Filed: 04/09/23 20:18> Critical Care Time Critical Care Time: Yes Total Critical Care Time: 120 Attestation: Time is acquired ongoing critical care the patient, evaluation of Radiology, telemetry, and lab data. Patient has been repeatedly updated. Conversations with multiple specialists and multiple hospitalist was required to finally achieve the disposition. This includes the conversation with the accepting hospitalist. Discharge Plan Departure Patient Disposition: [facility] Clinical Impression: Pulmonary air embolism, Community acquired pneumonia
[2023-04-08 16:54] LABS: Adenovirus Not Detected (Not Detect); B. parapertussis Not Detected (Not Detecte); Bordetella pertussis Not Detected (Not Detecte); Chlamydophila pneumoniae Not Detected (Not Detect); Coronavirus 229E Not Detected (Not Detect); Coronavirus HKU1 Not Detected (Not Detect); Coronavirus NL 63 Not Detected (Not Detect); Coronavirus OC43 Not Detected (Not Detect); Human Metapneumovirus Not Detected (Not Detect); Human Rhinovirus/Enterovirus Not Detected (Not Detect); Influenza A Not Detected (Not Detect); Influenza B Not Detected (Not Detect); Parainfluenza Virus 1 Not Detected (Not Detect); Parainfluenza Virus 2 Not Detected (Not Detect); Parainfluenza Virus 3 Not Detected (Not Detect); Parainfluenza Virus 4 Not Detected (Not Detect); Respiratory Syncytial Virus Not Detected (Not Detect); SARS- CoV-2 Not Detected (Not Detecte)
[2023-04-08 16:55] LABS: Mycoplasma pneumoniae Not Detected (Not Detect)
[2023-04-08 17:05] LABS: Creatine Kinase 27 U/L (55-170)
[2023-04-08 17:18] LABS: NT-proBNP (BNP-Adult 18+) 73 pg/mL (<125); Troponin I < 0.012 ng/mL (0.01-0.034)
[2023-04-08] MEDS: METOPROLOL IR 25 MG TABLET PO (18:39)
[2023-04-08] MEDS: cefTRIAXone 1,000 MG in SODIUM CHLORIDE 0.9% 100 ML 200 MG IV (18:39)
[2023-04-08] MEDS: AZITHROMYCIN 250 MG TABLET 500 MG PO (18:39)
[2023-04-08] MEDS: HEPARIN 5,000 UNIT/ML VIAL 7300 UNIT IV (18:40)
[2023-04-08] MEDS: HEPARIN DRIP 25,000 UNIT/500 ML IV.SOLN 32.658 UNIT IV (18:46)
[2023-04-08] MEDS: MORPHINE 2 MG/ML INJ 4 MG IV (21:07)
[2023-04-09] VITALS (118 sets, daily range): BP systolic 93–185; BP diastolic 47–119; PULSE 70–110; RESP 11–51; O2SAT 71–99
[2023-04-09] MEDS: HYDROMORPHONE 1 MG INJ IV ×7 (00:55→21:56)
--- NOTE | 2023-04-09 01:06 | PC.NURSE ---
pt states he is getting relief with the pain medication, pain does increase with specific movements. pt given water to drink at bedside
[2023-04-09 01:16] LABS: PTT Partial Thromboplastin Tim 52 SECONDS (26-36)
[2023-04-09] MEDS: HEPARIN 5,000 UNIT/ML VIAL 2000 UNIT IV ×3 (01:32→21:50)
[2023-04-09] MEDS: diazePAM 10 MG/2 ML SYRINGE 5 MG IV ×3 (01:39→21:59)
[2023-04-09] MEDS: OXYCODONE/ACETAMINOPHEN 5/325 TABLET 2 TAB PO (03:05)
--- NOTE | 2023-04-09 04:11 | PC.NURSE ---
2200 Pt on waitlist at [facility] with potential for transfer to facility on 04/09/23 staff to F/U after shift change in AM . Pt also on waitlist at [facility] No beds available at this time F/U in the AM after shift change. Prov,Leonel,Luciana higgins not taking waitlist at this time staff to F/U during day shift
[2023-04-09 08:05] LABS: Hematocrit 38.8 % (41-53); Hemoglobin 13.3 g/dL (13.5-17.5); Platelet Count 248 X10^3/uL (150-400)
[2023-04-09 08:21] LABS: PTT Partial Thromboplastin Tim 58 SECONDS (26-36)
[2023-04-09] MEDS: HEPARIN DRIP 25,000 UNIT/500 ML IV.SOLN 36.6 UNIT IV (09:51)
[2023-04-09] MEDS: MORPHINE 2 MG/ML INJ 4 MG IV ×2 (09:53→14:29)
[2023-04-09] MEDS: OXYCODONE/ACETAMINOPHEN 5/325 TABLET 1 TAB PO ×2 (10:37→17:38)
[2023-04-09] MEDS: LACTATED RINGERS 1,000 ML 150 ML IV ×2 (13:23→20:32)
[2023-04-09 14:46] LABS: PTT Partial Thromboplastin Tim 54 SECONDS (26-36)
--- NOTE | 2023-04-09 15:16 | DI.ECHO.S_ITS ---
[facility]---------+ [facility] +---------+ : : [address] : : : : [id number] : : : : Phone: [phone]---------+ Echocardiogram Report + + :Name: NAVEED MORALES Study Date: 04/09/2023 Height: 70 in : :[facility] ReadingLocation: Weight: 200 lb : : Gender: Male BSA: 2.1 m2 : :: 1960 Age: 62 yrs BP: 174/109 mmHg: :Reason For Study: BILATERAL PULMONARY EMBOLISM : :Ordering Physician: RAÚL, : :TIMBO Performed By: Sallie Gomez : :Referring: TIMBO OLSEN : + + Interpretation Summary 1) Normal left ventricular thickness, size, wall motion, and systolic function (EF 60-65%). 2) Upper normal right ventricular size with normal function. 3) No significant valvular abnormalities. 4) Pulmonary artery pressures cannot be estimated because of the lack of a measurable TR jet velocity. 5) No prior Echo available for comparison. Procedure: A two-dimensional transthoracic echocardiogram with color flow and Doppler was performed. A contrast injection of Definity was performed to improve assessment of LV function. The study quality was technically adequate. There is no prior echocardiogram noted for this patient. The patient was in sinus rhythm with heart rates between 75-80 bpm during the exam. Left Ventricle: The left ventricle is normal in size and wall thickness. The ejection fraction is estimated to be 60-65%. Left ventricular systolic function appears normal without focal wall motion abnormalities. Right Ventricle: The right ventricle is at the upper limits of normal in size. The right ventricular systolic function is normal. Atria: The left atrial size is normal. Right atrial size is normal. There is no Doppler evidence for an interatrial shunt. Mitral Valve: The mitral valve is normal in structure and function. There is no mitral regurgitation noted. Aortic Valve: The aortic valve opens well. There is no aortic valve stenosis. No aortic regurgitation is present. Tricuspid Valve: The tricuspid valve is normal in structure and function. There is trace tricuspid regurgitation. Pulmonary artery pressures cannot be estimated because of the lack of a measurable TR jet velocity. Pulmonic Valve: The pulmonic valve is not well visualized. There is no pulmonic valvular regurgitation. Great Vessels: The aortic root is normal size. The dimensions of the ascending aorta are normal. The IVC is of normal diameter and collapses greater than 50% with a sniff. This suggests a low right atrial pressure of 3 mm Hg. Pericardium/ Pleura There is no pericardial effusion. There is no pleural effusion. MMode/2D Measurements & Calculations LVIDd: 4.6 cm LVOT diam: 2.0 cm LVIDs: 2.8 cm Ao root diam: 3.2 cm FS: 39.1 % asc Aorta Diam: 3.4 cm EPSS: 0.65 cm Ao Arch Diam (Prox Trans): 3.7 cm IVSd: 0.88 cm LVPWd: 0.90 cm LV castellanos. diameter/BSA (cm/m^2): 2.2 LV sys. diameter/BSA (cm/m^2): 1.3 LA A2 area: 23.6 cm2 RA long axis: 5.3 cm LA A4 area: 19.7 cm2 RA area: 13.9 cm2 LA length (vol): 6.0 cm RA vol: 31.3 ml LA vol: 65.7 ml RA : 15.0 ml/m2 LA vol index: 31.5 ml/m2 IVC diam: 1.2 cm RVD1 (basal): 3.9 cm RVD2 (mid): 3.1 cm TAPSE: 2.3 cm Doppler Measurements & Calculations Ao V2 max: 164.5 cm/sec LVOT Max Brenton: 96.5 cm/sec Ao V2 mean: 115.7 cm/sec LV V1 max P.7 mmHg Ao max P.8 mmHg LV V1 VTI: 18.8 cm Ao mean P.1 mmHg ÁNGEL(I,D): 2.2 cm2 Ao V2 VTI: 28.2 cm ÁNGEL(V,D): 1.9 cm2 sev ratio: 0.67 ÁNGEL indexed to BSA (cm^2/m^2): 1.0 MV E max brenton: 76.0 cm/sec PA V2 max: 147.6 cm/sec MV A max brenton: 82.8 cm/sec PA V2 mean: 88.8 cm/sec MV E/A: 0.92 PA mean P.7 mmHg Med Peak E' Brenton: 8.7 cm/sec PA pr(Accel): 55.0 mmHg E/E' med: 8.7 Lat Peak E' Brenton: 13.7 cm/sec E/E' lat: 5.5 E/e' average: 7.1 MV dec time: 0.18 sec SVLVOT): 61.7 ml Reading Physician:04:44 PM
--- NOTE | 2023-04-09 16:24 | PC.NURSE ---
Called for any updates with the hospitals we have established waitlists with. Re-called places for placement and pt is now on the waitlist for [facility] and will F/U later.
[2023-04-09] MEDS: ALBUTEROL 2.5 MG/3 ML NEB (ADULT) INH (18:15)
--- NOTE | 2023-04-09 18:30 | RT ---
pt karla tx well, on 2 lpm nc
[2023-04-09 18:32] LABS: PCO2 ABG 43.4 mmHg (35-45); pH ABG 7.38 (7.35-7.45)
[2023-04-09 18:33] LABS: Fractionated Inspired Oxygen 28; HCO3 ABG 26 mmol/L (23-27); Oxygen Saturation ABG 92 % (95-100); PO2 ABG 65 mmHg (80-100); TCO2 ABG 27 mmol/L (23-27)
[2023-04-09 19:55] LABS: Add Manual Diff / Slide Review NO; Basophils Absolute Auto 0 /uL (0-100); Basophils Percent Auto 0.3 % (0-2); Eosinophils Absolute Auto 0 /uL (0-450); Eosinophils Percent Auto 0.4 % (2-4); Hematocrit 38.7 % (41-53); Hemoglobin 13.1 g/dL (13.5-17.5); Lymphocytes Absolute Auto 600 /uL (1100-4500); Lymphocytes Percent Auto 5.4 % (25-40); Mean Corpuscular HGB Conc 33.9 % (30-36); Mean Corpuscular Hemoglobin 30.7 PG (26-34); Mean Corpuscular Volume 90.6 fL (80-100); Monocytes Absolute Auto 800 /uL (0-900); Monocytes Percent Auto 6.7 % (3-14); Neutrophils Absolute Auto 9900 /uL (1500-7000); Neutrophils Percent Auto 87.2 % (50-75); Platelet Count 268 X10^3/uL (150-400); Red Blood Cell Count 4.27 X10^6/uL (4.5-5.9); Red Cell Distribution Width 13.6 % (11.6-14.8); White Blood Cell Count 11.4 X10^3/uL (4.5-11.0)
[2023-04-09 20:13] LABS: Alanine Aminotransferase 30 IU/L (<50); Albumin 4.1 g/dL (3.5-5.0); Albumin Globulin Ratio 1.1 (1.0-2.8); Alkaline Phosphatase 87 U/L (38-126); Aspartate Aminotransferase 20 IU/L (17-59); BUN Creatinine Ratio 14.9 (6-22); Bilirubin Total 1.1 mg/dL (0.2-1.3); Blood Urea Nitrogen 13 mg/dL (9-20); Calcium 10.1 mg/dL (8.4-10.2); Carbon Dioxide 30 mmol/L (22-32); Chloride 99 mmol/L (98-107); Estimated Glomerular Filt Rate > 60 mL/min (>60); Globulin 3.7 g/dL (1.7-4.1); Glucose 153 mg/dL (80-110); HEMOLYSIS < 15 (0-50); Potassium 4.3 mmol/L (3.4-5.1); Sodium 134 mmol/L (137-145); Total Protein 7.8 g/dL (6.3-8.2)
[2023-04-09] MEDS: DOXYCYCLINE 100 MG in SODIUM CHLORIDE 0.9% 100 ML IV (20:31)
[2023-04-09 21:24] LABS: PTT Partial Thromboplastin Tim 55 SECONDS (26-36)
--- NOTE | 2023-04-09 22:20 | PC.NURSE ---
Report given to Hellen [facility]. Patient left unit with Heparin running at 40.6ml/hr 2032units/hr. LR running at 150ml/hr.
--- NOTE | 2023-04-09 22:49 | PC.NURSE ---
Called report to [facility], report given to Amy LAND. contact number [phone]
== END 2023-04-09 22:21 | disposition short-term general hospital (02) ==
PROVIDERS: Emergency Medicine; Student in an Organized Health Care Education/Training Program; Emergency Provider Emergency Medicine
DX: T79.0XXA Air embolism (traumatic), initial encounter (principal); J18.9 Pneumonia, unspecified organism; R07.89 Other chest pain
CPT/HCPCS: 36415; 36600; 71275; 80053; 81003; 82550; 82805; 83690; 83880; 84484; 85014; 85018; 85025; 85049; 85610; 85730; 87633; 93005; 93306; 94640; 96365; 96366; 96368; 96375; 96376; 99285; 99291; 99292; J0696; J1170; J1644; J1885; J2270; J3360; J7613; Q9967

== ENCOUNTER → 2024-01-05 09:49 | Outpatient (CLI) | payer MEDICARE, OTHER, SELFPAY ==
[2024-01-05 10:33] LABS: Hematocrit 43.2 % (41-53); Hemoglobin 14.6 g/dL (13.5-17.5); Mean Corpuscular HGB Conc 33.8 % (30-36); Mean Corpuscular Hemoglobin 30.8 PG (26-34); Mean Corpuscular Volume 91.1 fL (80-100); Platelet Count 234 X10^3/uL (150-400); Red Blood Cell Count 4.74 X10^6/uL (4.5-5.9); White Blood Cell Count 5.4 X10^3/uL (4.5-11.0)
[2024-01-05 11:37] LABS: TSH w/ Reflex to FT4 1.83 uIU/mL (0.47-4.68)
[2024-01-05 16:46] LABS: HEMOLYSIS < 15 (0-50)
[2024-01-05 17:08] LABS: Alanine Aminotransferase 34 IU/L (<50); Albumin 4.2 g/dL (3.5-5.0); Albumin Globulin Ratio 1.4 (1.0-2.8); Alkaline Phosphatase 62 U/L (38-126); Aspartate Aminotransferase 28 IU/L (17-59); BUN Creatinine Ratio 16.3 (6-22); Bilirubin Total 0.5 mg/dL (0.2-1.3); Blood Urea Nitrogen 15 mg/dL (9-20); Calcium 10.2 mg/dL (8.4-10.2); Carbon Dioxide 26 mmol/L (22-32); Chloride 108 mmol/L (98-107); Cholesterol 223 mg/dL (140-199); Estimated Glomerular Filt Rate > 60 mL/min (>60); Glucose 110 mg/dL (80-110); HDL Cholesterol 38 mg/dL (40-60); LDL Cholesterol Calculated 149 mg/dL (<100); Potassium 4.8 mmol/L (3.4-5.1); Sodium 140 mmol/L (137-145); Total Protein 7.2 g/dL (6.3-8.2); Triglycerides 182 mg/dL (35-150)
[2024-01-05 19:26] LABS: Hemoglobin A1C% w Est Avg Glu 5.6 % (4.0-6.0)
[2024-01-07 11:25] LABS: Prostate Specific Antigen 1.66 ng/mL (0.10-4.00)
== END ==
PROVIDERS: PCP Internal Medicine; Referring Provider Internal Medicine; Visit Provider Internal Medicine
DX: E78.2 Mixed hyperlipidemia (principal); R73.01 Impaired fasting glucose; N40.1 Benign prostatic hyperplasia with lower urinary tract symptoms; Z86.711 Personal history of pulmonary embolism; N13.8 Other obstructive and reflux uropathy
CPT/HCPCS: 36415; 80053; 80061; 83036; 84153; 84443; 85027

== ENCOUNTER → 2024-01-12 09:26 | Outpatient (CLI) | payer MEDICARE, OTHER, SELFPAY ==
--- NOTE | 2024-01-12 09:28 | DI.CT.S_ITS ---
PROCEDURE: CT CHEST WO CON INDICATIONS: followup pulmonary nodules TECHNIQUE: Noncontrast 2.0-2.5 mm thick sections acquired from the pulmonary apices to the posterior costophrenic angles. 7 mm thick axial MIP and 5 mm coronal and sagittal reformats were then acquired. For radiation dose reduction, the following was used: automated exposure control, adjustment of mA and/or kV according to patient size. COMPARISON: [facility], CT, CT ANGIO CHEST PE PROTOCOL, 04/08/2023, 16:14. FINDINGS: Image quality: Diagnostic. Lower Neck: No enlarged lymph nodes. Thyroid: No thyroid nodules which require sonographic follow up, per consensus guidelines. Axillae: No enlarged lymph nodes. Chest Wall: Unremarkable. Bones: Unremarkable. Lungs and Pleura: There are numerous nodular and ground-glass opacities bilaterally, most pronounced in upper lobes. Compared with the last exam, there is mild improvement. No pneumothorax or pleural effusions. Heart: Heart size is normal. No pericardial effusion. Mild coronary artery calcification. Thoracic Vessels: The aorta and pulmonary arteries demonstrate normal size. Mediastinum and Isis: Mildly enlarged lymph nodes are present. Reference lymph nodes: -1.3 x 2.1 cm; subcarina. -1 cm; right paratrachea. Esophagus: No wall thickening. Small hiatal hernia. Upper Abdomen: Visualized upper abdomen solid organs and bowel loops appear normal. IMPRESSION: 1. Mild improvement of bilateral nodular and ground-glass opacities although significant disease persists. An infectious or inflammatory process is favored but neoplasm cannot be excluded. Given persistent abnormality in lungs since 04/08/2023, and the limb process such as sarcoidosis is a diagnostic consideration. Recommend clinical correlation and continue imaging follow-up. Consider pulmonology consultation. 2. Mild mediastinal lymphadenopathy, unchanged. Recommendations do not apply to lung cancer screening, patients with immunosuppression, or patients with known primary cancer. Dictated by: Chaparro Jacob M.D. on 01/12/2024 at 16:09 Approved by: Chaparro Jacob M.D. on 01/12/2024 at 16:19
== END ==
LOC: CT 09:28
PROVIDERS: PCP Internal Medicine; Referring Provider Internal Medicine; Visit Provider Internal Medicine
DX: R91.8 Other nonspecific abnormal finding of lung field (principal); I25.10 Atherosclerotic heart disease of native coronary artery without angina pectoris; R59.0 Localized enlarged lymph nodes; K44.9 Diaphragmatic hernia without obstruction or gangrene
CPT/HCPCS: 71250

== ENCOUNTER 2024-05-31 06:28 | Day surgery (SDC) | payer MEDICARE, SELFPAY ==
[2024-05-31] VITALS (7 sets, daily range): BP systolic 133–168; BP diastolic 89–123; PULSE 65–98; RESP 14–26; TEMP 36.2–36.4; O2SAT 95–97
[2024-05-31] MEDS: LACTATED RINGERS 1,000 ML 42 ML IV (07:23)
--- NOTE | 2024-05-31 07:36 | P.HP_ITS ---
History of Present Illness History of Present Illness Date Patient Seen: 05/31/24 Time Patient Seen: 07:36 Chief complaint: Screening Colonoscopy Narrative: 63-year-old man here for 1st time screening colonoscopy. No family history of colon cancer. No abdominal concerns today. [facility] Medical History Sarcoidosis (~03/2023) Impaired fasting glucose Mixed hyperlipidemia Pulmonary nodules History of deep venous thrombosis (DVT) of distal vein of left lower extremity History of pulmonary embolism (~03/2023) Hearing decreased Family History Father Stroke Diabetes mellitus Hyperlipidemia Mother Arthritis Hypertension Social History details: , two grown children, contractor/osp[employer] Smoking Status: Never smoker alcohol intake: current Meds Home Medications and Allergies Allergies Allergy/AdvReac Type Severity Reaction Status Date / Time No Known Drug Allergies Allergy Verified 05/31/24 07:21 Exam Vital Signs (past 8 hours): - 05/31/24 07:14 Temperature 97.1 F L Pulse Rate 72 Respiratory Rate 16 Blood Pressure 133/89 Pulse Oximetry 96 Oxygen Delivery Method Room Air Oxygen Delivery Method Room Air Narrative Exam Narrative: General adult man alert oriented no acute distress Chest nonlabored respiration Extremities warm well perfused Assessment & Plan Assessment & Plan narrative: The patient requires colorectal screening and colonoscopy is recommended. Technical details were discussed. Risks, benefits, alternatives explained. Risks including but not limited to myocardial infarction, aspiration, bleeding, pain, missed lesion, incomplete examination, need for further radiographic studies, intestinal injury, and need for major abdominal surgery were discussed. All questions were answered to their satisfaction, and they are in agreement with this plan. Time-Based Coding :: [TOTAL MINUTES] spent with patient and on the chart (including review of chart, obtaining history, exam, reviewing outside data, placing orders, documenting exam and treatment plan, and counseling patient) on [DATE].
--- NOTE | 2024-05-31 07:37 | P.OP.COLON_ITS ---
Operative Date/Time/Diagnoses Date of procedure: 05/31/24 Time of procedure: 07:37 Pre-op diagnosis: Colorectal screening Procedure & Clinicians Study performed: Screening colonoscopy Same procedure as scheduled: Yes Indications: Screening Surgeon: Mohsen Colbert Procedure Notes Procedure in detail: The history and physical was performed/updated and the patient is ASA class is 2. The procedure was discussed in detail with the patient. Potential risks complications including infection, bleeding, missed diagnosis, perforation, need for surgery, and were explained. Their questions were answered and informed consent was obtained. Patient was brought to the procedure room and placed standard monitoring equipment. The patient's vital signs were monitored continuously throughout the entire procedure. Prior to starting time-out was performed. The patient was placed in the left lateral recumbent position. Procedural sedation was administered by anesthesia. Examination began with a thorough inspection of the perianal area there was no evidence of fissures, fistulae, external hemorrhoids or cutaneous malignancy. The colonoscopy scope was then placed into the anal canal and was advanced to the cecum, which was identified by the ileocecal valve, the appendiceal orifice and the confluence of the taenia. The scope was then slowly withdrawn examining colon thoroughly in all directions, irrigating it of any residual stool. The scope was retroflexed within the rectum The patient tolerated the procedure well. They will be discharged once criteria are met. The prep was of good/excellent quality. The withdrawl time was 7 minutes. FINDINGS * Diverticulosis of descending colon * No mass or polyps Specimen(s): none sent Impression: Diverticulosis Post-procedure Recommendations: Colonoscopy in 10 years and High fiber diet Disposition: same day surgery
== END 2024-05-31 08:33 | disposition home or self-care (01) ==
PROVIDERS: PCP Internal Medicine; Referring Provider Surgery; Visit Provider Surgery
PROC: 0DJD8ZZ Inspection of Lower Intestinal Tract, Via Natural or Artificial Opening Endoscopic (ICD-10-PCS; CPT 45378; principal; 2024-05-31 07:45)
DX: Z12.11 Encounter for screening for malignant neoplasm of colon (principal); K57.30 Diverticulosis of large intestine without perforation or abscess without bleeding
CPT/HCPCS: G0121; J2704